=== PATIENT | male | born 1975 | race Hispanic/Latino ===

== ENCOUNTER 2019-09-27 09:12 | Emergency (ER) | payer BC, SELFPAY ==
--- NOTE | ~2019-09-27 | CT_ITS ---
EXAMINATION: CT abdomen pelvis w con DATE: 09/27/2019 10:41 INDICATION: Rectal pain. Blood in stool. TECHNIQUE: Computed tomography (CT) of the abdomen and pelvis was performed with 100 mL Omnipaque 350 intravenous contrast. Automated exposure control and iterative reconstruction technique were employe d. The dose-length product was 1148.05 mGy-cm. COMPARISON: None. FINDINGS: The visualized portions of the lung bases are clear without pneumonia or pleural effusion. The heart size is normal. No pericardial effusion. The liver, gallbladder, spleen, pancreas, adrenal glands, and right kidney are normal. There is an 18 mm cyst in left kidney. There is a left inguinal hernia containing fat. There is diverticulosis of the colon without evidence of diverticulitis. The a ppendix is normal. There are no dilated loops of bowel. The rectum is unremarkable. There are no path ologically enlarged lymph nodes. There is no free intraperitoneal fluid. There is mild fat stranding at the root of the small bowel mesentery. There is moderate lumbar spondylosis. IMPRESSION: 1. Left inguinal hernia containing fat. 2. 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 Reviewed, dictated and finalized at location A.
[2019-09-27 09:19] VITALS: BP 160/90; PULSE 97; RESP 16; TEMP 36.5; O2SAT 98
--- NOTE | 2019-09-27 10:05 | ED.GENADULT ---
HPI - General Adult General Chief complaint: Unspecified Stated complaint: BUSTED HEMROID Time Seen by Provider: 09/27/19 09:23 Source: RN notes reviewed History of Present Illness HPI narrative: Patient presents emergency department from home for hemorrhoid. Patient states that approximately 1 week ago he began to notice swelling and firmness in his rectum. States at that time he called the after-hours line was given a steroid cream for what was thought to be a thrombosed hemorrhoid. Patient states even placing the cream on the region when this morning he awoke and there was blood in his sheets. He states hemorrhoid is decreased in size but is still present. Patient states he does have a history of frequent skin infections and is diabetic and was worried about possible infection he denies any fevers or chills abdominal pain or any other symptoms at this time Related Data Home Medications Medication Instructions Recorded Confirmed bfuattqx-yro-bzyus-vit K-lycop 1 tablet PO DAILY 03/10/19 03/10/19 [Men's Multivitamin] Allergies Allergy/AdvReac Type Severity Reaction Status Date / Time No Known Drug Allergies Allergy Unknown Verified 03/15/19 11:07 Review of Systems Review of Systems: Narrative: Gen.: Denies fevers or chills Respiratory: Denies shortness of breath CV: Denies chest pain GI: Denies abdominal pain nausea, emesis or diarrhea reports hemorrhoid Musculoskeletal: Denies back pain or muscle pain Neuro: Denies headache or weakness Skin: Denies rash Except as documented, all other systems reviewed and negative PMFSH Past Medical History Medical History Bloating symptom Diabetes Diarrhea Hypertension ESTEFANIA (obstructive sleep apnea) Family History Family History (Updated 02/21/19 @ 11:13 by DOCTOR UNKNOWN) Father Family history of diabetes mellitus in first degree relative Diabetes mellitus Sibling Depression Grandparent Family history of malignant neoplasm Social History Social History Smoking status: Never smoker Alcohol intake: current Exam Narrative: Exam Narrative: APPEARANCE: No acute distress, nontoxic, resting in bed EYES: EOMI HEENT: Normocephalic, atraumatic, OMM RESPIRATORY: No respiratory distress ABDOMINAL: Soft, nontender, nondistended, no rebound or guarding Rectum: At the 7 o'clock position there is a firm area of swelling no surrounding erythema no current bleeding or drainage MUSCULOSKELETAl: Moves all extremities. No clubbing, cyanosis or edema. NEURO: Awake and alert. Following commands, speech normal, no focal deficits SKIN:: Warm, dry. No rashes lesions or abrasions PSYCHIATRIC: Normal affect/mood, Course Course Emergency Course: Discussed with patient results of workup and diagnosis. Discussed need for follow-up with primary care, proper use of medication, and reasons to return to the emergency department. Patient understands and agrees to current treatment plan Vital Signs Vital signs: Vital Signs Temperature 97.7 F 09/27/19 09:19 Pulse Rate 97 09/27/19 09:19 Respiratory Rate 16 09/27/19 09:19 Blood Pressure 160/90 H 09/27/19 09:19 Pulse Oximetry 98 09/27/19 09:19 Temperature 97.7 F 09/27/19 09:19 Pulse Rate 97 09/27/19 09:19 Respiratory Rate 16 09/27/19 09:19 Blood Pressure 160/90 H 09/27/19 09:19 Pulse Oximetry 98 09/27/19 09:19 Medical Decision Making [facility] Narrative Medical decision making narrative: Patient with what appeared to be thrombosed hemorrhoid that then opened and began to bleed still some swelling present is a diabetic concern to possible infection with history of cellulitis and MRSA in the past. Did do imaging at this time no signs of abscess at this time do believe is a thrombosed hemorrhoid outpatient continue hydrocortisone cream and follow-up with his PCP as well as given general surgery f
[2019-09-27 10:30] LABS: Basophils Percent Auto 0.3 % (0.2-1.2); Eosinophils Absolute Auto 0.1 K/mm3 (0-0.3); Eosinophils Percent Auto 0.7 % (0-4.4); Hemoglobin 16.3 g/dL (14.0-18.0); Immature Granulocyte Absolute 0.05 K/mm3 (0.00-0.031); Immature Granulocyte Percent A 0.5 % (0-0.5); Lymphocytes Absolute Auto 2.05 K/mm3 (0.9-3.2); Lymphocytes Percent Auto 19.4 % (18.3-44.2); Mean Corpuscular HGB Conc 32.6 g/dl (32-36); Mean Corpuscular Hemoglobin 27.1 pg (26-34); Mean Corpuscular Volume 83.2 fl (80-100); Mean Platelet Volume 9.6 fl (7.4-10.4); Monocytes Absolute Auto 0.7 K/mm3 (0.1-0.6); Monocytes Percent Auto 6.3 % (2.6-8.5); Neutrophils Absolute Auto 7.7 K/mm3 (1.3-6.7); Neutrophils Percent Auto 72.8 % (45.5-73.1); Platelet Count Result 288 k/mm3 (150-375); Red Blood Count 6.01 M/mm3 (4.6-6.20); Red Cell Distribution Width 13.3 % (11.5-14.5); White Blood Count 10.6 K/mm3 (4.5-10.0)
[2019-09-27 10:36] LABS: Estimated CRCL calculation 135 ml/min; Estimated Glomerular Filt Rate > 60
[2019-09-27 10:48] LABS: Blood Urea Nitrogen 13 mg/dL (9-20); Calcium 9.3 mg/dL (8.4-10.2); Carbon Dioxide 33 mmol/L (22-30); Chloride 98 mmol/L (98-107); Estimated CRCL calculation 153 ml/min; Estimated Glomerular Filt Rate > 60; Glucose 153 mg/dL (75-110); Potassium 3.4 mmol/L (3.4-5.0); Sodium 140 mmol/L (137-145)
[2019-09-27 11:36] VITALS: BP 148/60; PULSE 78; RESP 20; O2SAT 100
== END 2019-09-27 11:38 | disposition home or self-care (01) ==
PROVIDERS: Emergency Provider Emergency Medicine; PCP Internal Medicine
DX: K64.9 Unspecified hemorrhoids (principal); E11.9 Type 2 diabetes mellitus without complications; I10 Essential (primary) hypertension; G47.30 Sleep apnea, unspecified
CPT/HCPCS: 36415; 74177; 80048; 85025; 99284; Q9967

== ENCOUNTER 2020-06-27 08:30 | Outpatient (RCR) | payer BC, SELFPAY ==
--- NOTE | 2020-05-23 11:22 | PTOPEVAL ---
PHYSICAL THERAPY EVALUATION Thank you for referring Santino Metzger to [facility].? Santino was evaluated with a dx of right shoulder adhesive capsulitis. The patient is scheduled to be seen for therapy?2 x/week for 4 weeks. Please review, sign, date and return this plan of care MIRELLA. I agree with and certify that the following plan of care is medically necessary. Referring Physician Date Attending Provider: Vishal Villanueva MD *PT Outpatient Evaluation Start: 05/23/20 10:07 Freq: Status: Active Protocol: Document 05/23/20 10:07 [facility] (Rec: 05/23/20 10:48 [facility] [id number]) Assessment Status Evaluation Evaluation Information Problem Diagnosis right shoulder adhesive capsulitis Additional Evaluation Detail Had severe gastritis in 2018 which he slept a lot due to severe fatigue. The patient began having guy. shoulder pain in 2018 especially with sidelying/ sleeping. The left got better but the right got worse. In October of 2019 the patient was golfing and had severe pain at the right shoulder and pain never relieved. The patient can't sleep on his right side and has pain with reaching, positioning and dressing. 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 Diagnostic Tests X-Rays For This Problem Yes: mild OA Prior Level of Function Medications Home Meds (Include: OTC, RX, Vitamins, tylenol 3x a day per MD for Herbals, Dose, Route,and Frequency) shoulder and had an injection Query Text:Home Med Entries Will No at right shoulder when he saw Longer Recall From Past Visits. Home MD Meds Must Be Re-entered With Each Visit. Pain Assessment Timing of Pain Assessment Timing of Pain Assessment Assessment Pain Scale Pain Scale Used Numeric (1 - 10) Self Report Pain Assessment Right Shoulder(s) Reported Pain Level 0 Pain Frequency Chronic Other Pain Description 5/10 with aggravating movements Greatest Pain Intensity 10 Pain Aggravating Factors
--- NOTE | 2020-06-27 09:30 | PTOPEVAL ---
PHYSICAL THERAPY DISCHARGE SUMMARY Thank you for referring Santino Metzger to [facility] The patient has been seen 11 visits for dx of right shoulder adhesive capsulitis. Goals being met and patient to continue on own. Please review, sign, date and return this plan of care MIRELLA. I agree with and certify the following plan of care. Referring Physician Date Attending Provider: Vishal Villanueva MD *PT Outpatient Discharge Start: 05/23/20 10:07 Freq: Status: Active Protocol: Document 06/27/20 08:33 [facility] (Rec: 06/27/20 08:47 [facility] [id number]) Assessment Status Discharge Pain Assessment Timing of Pain Assessment Timing of Pain Assessment Pre-Treatment Pain Scale Pain Scale Used Numeric (1 - 10) Self Report Pain Assessment Right Shoulder(s) Reported Pain Level 1 Pain Frequency Acute Other Pain Description with extreme IR reach Greatest Pain Intensity 4 Pain Score Pain Score 1: Self Report Interventions Used Interventions Used By Clinicians Education,Exercise,Heat, Mobilization,Manual Therapy Techniques Pain Relief Interventions Used By Exercise,Heat Patient Upper Extremity Range of Motion General Upper Extremity Range of Motion Reason Not Measured Pain Gross Upper Extremity Range of Motion right shoulder active motion: Comments extension 74, flexion 156, abduction 169, ER 90, IR 60 degrees. Passive motoions: flexion 170, abduction 180, ER 90, IR 65 degrees. PT Clinical Summary Mr. Metzger is a 45 y/o male that has been seen 11 visits for heat, manual therapy, exercises and patient education for the dx of right shoulder adhesive capsulitis. Patient is compliant and has progressed well with most goals met. IR still has mild restrictions and patient is independent for progressing on own at home. Patient to call if has further PT needs. D/C PT at this time. Patient to see MD next week for follow up.
== END 2020-06-28 10:58 | disposition home or self-care (01) ==
LOC: ANHPT 08:30
PROVIDERS: PCP Internal Medicine; Visit Provider Orthopaedic Surgery
DX: M75.01 Adhesive capsulitis of right shoulder (principal)
CPT/HCPCS: 97110; 97140; 97161

== ENCOUNTER → 2022-11-21 07:36 | Outpatient (CLI) | payer BC, SELFPAY ==
--- NOTE | ~2022-11-21 | XR_ITS ---
EXAMINATION: XR foot RT min 3V DATE: 11/21/2022 08:00 INDICATION: Dropped part of gun on right foot. TECHNIQUE: 4 views of right foot were obtained. COMPARISON: Right calcaneus radiographs 01/31/2012 FINDINGS: Bone alignment is normal. No fracture. There is mild osteoarthritis of some of the interpha langeal joints. There are enthesophytes at the posterior and plantar aspects of calcaneal tuberosity. IMPRESSION: 1. Mild polyarticular osteoarthritis. Reviewed, dictated and finalized at location A.
== END ==
PROVIDERS: PCP Family Medicine; Visit Provider Nurse Practitioner
DX: M79.671 Pain in right foot (principal); M15.9 Polyosteoarthritis, unspecified
CPT/HCPCS: 73630

== ENCOUNTER 2023-09-29 08:09 | Emergency (ER) | payer BC, SELFPAY ==
[2023-09-29] VITALS (8 sets, daily range): BP systolic 105–151; BP diastolic 63–76; PULSE 113–130; RESP 18–24; TEMP 38.5; O2SAT 94–98
--- NOTE | ~2023-09-29 | US_ITS ---
EXAMINATION: US venous doppler [facility] DATE: 09/29/2023 09:08 INDICATION: Left lower limb pain and swelling. TECHNIQUE: Grayscale ultrasound images without and with compression and Doppler ultrasound images of the left lower extremity veins were obtained. COMPARISON: None. FINDINGS: The visualized portions of left common femoral vein, profunda (deep) femoral vein, femoral vein, popl iteal vein, peroneal veins, posterior tibial veins, and greater saphenous vein outflow are patent. IMPRESSION: 1. No deep venous thrombosis. Reviewed, dictated and finalized at location A.
[2023-09-29 08:26] LABS: Glucose Point of Care 147 mg/dl (65-105)
--- NOTE | 2023-09-29 08:30 | ECG_ITS ---
SEE SCANNED COPY FOR CONFIRMED REPORT MTDD
[2023-09-29 08:53] LABS: Basophils Percent Auto 0.2 % (0.2-1.2); Eosinophils Percent Auto 0.1 % (0-4.4); Immature Granulocyte Absolute 0.05 K/mm3 (0.00-0.031); Immature Granulocyte Percent A 0.4 % (0-0.5); Lymphocytes Absolute Auto 0.61 K/mm3 (0.9-3.2); Lymphocytes Percent Auto 4.9 % (18.3-44.2); Mean Corpuscular HGB Conc 32.7 g/dl (32-36); Mean Corpuscular Volume 85.7 fl (80-100); Mean Platelet Volume 9.7 fl (7.4-10.4); Monocytes Absolute Auto 0.1 K/mm3 (0.1-0.6); Monocytes Percent Auto 0.8 % (2.6-8.5); Neutrophils Absolute Auto 11.8 K/mm3 (1.3-6.7); Neutrophils Percent Auto 93.6 % (45.5-73.1); Platelet Count Result 224 k/mm3 (150-375); Red Blood Count 5.72 M/mm3 (4.6-6.20); Red Cell Distribution Width 13.9 % (11.5-14.5); White Blood Count 12.6 K/mm3 (4.5-10.0)
[2023-09-29] MEDS: SODIUM CHLORIDE 0.9% IV 1,000 ML 999 ML IV CONT (08:55)
[2023-09-29 09:02] LABS: Alanine Aminotransferase 33 U/L (6-50); Albumin Level 4.6 g/dL (3.5-5.1); Alkaline Phosphatase 87 U/L (38-126); Anion Gap 11 mmol/L (4-12); Aspartate Amino Transferase 23 U/L (17-59); Bilirubin,Total 1.1 mg/dL (0.2-1.3); Blood Urea Nitrogen 14 mg/dL (9-20); Carbon Dioxide 24 mmol/L (22-30); Chloride 105 mmol/L (98-107); Estimated CRCL calculation 151 ml/min; Estimated Glomerular Filt Rate > 60; Glucose 155 mg/dL (65-110); Potassium 3.4 mmol/L (3.4-5.0); Sodium 140 mmol/L (137-145)
--- NOTE | 2023-09-29 09:55 | ED.EXTPRO ---
HPI - Extremity Problem General Chief complaint: Extremity Problem,Nontraumatic Stated complaint: L leg pain, NKI Time Seen by Provider: 09/29/23 08:46 History of Present Illness HPI Narrative: 48-year-old male present to emergency department for evaluation for swelling of the left lower extremity. Patient does have prior history of cellulitis with the most recent case being approximately 2 years ago when he lived in [place]. Patient states he started having some left lower leg pain yesterday did have a fever, patient present to the emergency department for evaluation today. Related Data Home Medications Medication Instructions Recorded Confirmed omeprazole magnesium 20 mg 20 mg PO DAILY PRN 11/20/22 05/29/23 tablet,delayed release (Prilosec OTC) Allergies Allergy/AdvReac Type Severity Reaction Status Date / Time No Known Allergies Allergy Verified 09/29/23 08:10 Review of Systems Review of Systems: All systems reviewed & are unremarkable except as noted in HPI and below PMFSH Past Medical History Medical History Adhesive capsulitis of right shoulder Bloating symptom BMI 36.0-36.9,adult COVID-19 Diabetes Diarrhea Hemoglobin A1C between 7% and 9% indicating borderline diabetic control 04/06/2020 A1C = 7.2 Hypertension ESTEFANIA (obstructive sleep apnea) Family History Family History Father Family history of diabetes mellitus in first degree relative Diabetes mellitus Sibling Depression Grandparent Family history of malignant neoplasm Social History Social History Smoking status: Never smoker Second hand tobacco smoke exposure: No Alcohol intake: never Substance use: never Substance use type: does not use Lack of Transportation: No Lack of Food: Never True Current Housing: I Have Housing Concerned About Future Housing: No Difficulty Paying Gas/Electric Bills: No Difficulty Paying for Meds: No Currently Unemployed: No Education: Master's Degree or Higher Difficulty w/ Childcare or Family Care: No Living arrangements: with family Occupation/Education: occupation Additional occupation/education comments: [employer] Exam Narrative: APPEARANCE: Well appearing, no pain, no distress, well-nourished. HEAD: normocephalic, atraumatic. EYES: PERRLA/EOMI, conjunctivae clear. NOSE: Normal no drainage EARS:TMS clear with good light reflex. THROAT: Pharynx clear, no exudate. NECK: Supple. No adenopathy, no masses. RESPIRATORY: Airway patent, respirations nonlabored. Clear to auscultation bilaterally, no rales, rhonchi, wheezing. CARDIOVASCULAR: Regular rate and rhythm without murmurs rubs or gallops. ABDOMINAL: Soft, nontender, nondistended, normal bowel sounds MUSCULOSKELETAL: Moves all extremities. Strength/ROM intact, No edema, No calf tenderness. NEURO: Alert. Cranial nerves II through XII intact. Good gait. Good coordination SKIN: Erythema of left lower extremity Course Course Emergency Course: Patient was offered admission but preferred to be started on antibiotics and discharged to home. Vital Signs Vital signs: Vital Signs Pulse Rate 123 H 09/29/23 08:14 Respiratory Rate 20 09/29/23 08:14 Blood Pressure 151/65 H 09/29/23 08:14 Pulse Oximetry 98 09/29/23 08:14 Temperature 101.3 F H 09/29/23 08:17 Pulse Rate 113 H 09/29/23 10:39 Respiratory Rate 20 09/29/23 10:39 Blood Pressure 105/63 09/29/23 10:39 Pulse Oximetry 95 09/29/23 10:39 Oxygen Delivery Room Air 09/29/23 08:17 MDM - Extremity (Nontraumatic) MDM Narrative Medical decision making narrative: 48-year-old male presents emergency department for evaluation for lower extremity erythema. patient had a low-grade fever and does have a leukocytosis of 12.6 with a stable hemoglobin. No acute abnormalities o
[2023-09-29] MEDS: CLINDAMYCIN 600 MG/D5W 50 ML 600 MG/50 ML PIGGYBACK 100 MG IVPB (10:14)
[2023-09-29] MEDS: ACETAMINOPHEN 500 MG TABLET 1000 MG PO (10:15)
== END 2023-09-29 10:42 | disposition home or self-care (01) ==
PROVIDERS: Emergency Provider Emergency Medicine; PCP Nurse Practitioner
DX: L03.116 Cellulitis of left lower limb (principal); E11.9 Type 2 diabetes mellitus without complications; I10 Essential (primary) hypertension; G47.33 Obstructive sleep apnea (adult) (pediatric); Z86.16 Personal history of COVID-19; Z79.84 Long term (current) use of oral hypoglycemic drugs; Z79.899 Other long term (current) drug therapy
CPT/HCPCS: 36415; 80053; 82948; 85025; 93005; 93971; 96361; 96365; 99284; A9270; J7030

== ENCOUNTER 2023-10-02 08:36 | Inpatient (IN) | payer BC, SELFPAY ==
[2023-10-02] VITALS (9 sets, daily range): BP systolic 111–132; BP diastolic 80–94; PULSE 76–95; RESP 16–20; TEMP 35.9–36.8; O2SAT 97–100; BMI 35.9
[2023-10-02 09:20] LABS: Basophils Absolute Auto 0.1 K/mm3 (0.0-0.1); Basophils Percent Auto 0.6 % (0.2-1.2); Eosinophils Absolute Auto 0.1 K/mm3 (0-0.3); Eosinophils Percent Auto 0.6 % (0-4.4); Hematocrit 46.8 % (42.0-52.0); Hemoglobin 15.5 g/dL (14.0-18.0); Immature Granulocyte Absolute 0.08 K/mm3 (0.00-0.031); Immature Granulocyte Percent A 0.8 % (0-0.5); Lymphocytes Absolute Auto 0.97 K/mm3 (0.9-3.2); Lymphocytes Percent Auto 9.2 % (18.3-44.2); Mean Corpuscular HGB Conc 33.1 g/dl (32-36); Mean Corpuscular Hemoglobin 27.7 pg (26-34); Mean Corpuscular Volume 83.6 fl (80-100); Mean Platelet Volume 10.2 fl (7.4-10.4); Monocytes Absolute Auto 0.5 K/mm3 (0.1-0.6); Monocytes Percent Auto 5.1 % (2.6-8.5); Neutrophils Absolute Auto 8.8 K/mm3 (1.3-6.7); Neutrophils Percent Auto 83.7 % (45.5-73.1); Platelet Count Result 234 k/mm3 (150-375); White Blood Count 10.5 K/mm3 (4.5-10.0)
[2023-10-02 09:37] LABS: Alanine Aminotransferase 36 U/L (6-50); Albumin Level 4.1 g/dL (3.5-5.1); Alkaline Phosphatase 85 U/L (38-126); Anion Gap 9 mmol/L (4-12); Aspartate Amino Transferase 31 U/L (17-59); Bilirubin,Total 0.9 mg/dL (0.2-1.3); Blood Urea Nitrogen 13 mg/dL (9-20); Calcium 8.7 mg/dL (8.4-10.2); Carbon Dioxide 24 mmol/L (22-30); Chloride 104 mmol/L (98-107); Estimated CRCL calculation 172 ml/min; Estimated Glomerular Filt Rate > 60; Glucose 179 mg/dL (65-110); Potassium 2.7 mmol/L (3.4-5.0); Sodium 137 mmol/L (137-145)
[2023-10-02 09:41] LABS: INR 1.1; Prothrombin Time 14.6 Seconds (11.1-14.7)
--- NOTE | 2023-10-02 09:45 | ED.GENADULT ---
HPI - General Adult General Chief complaint: Skin/Abscess/Foreign Body Stated complaint: cellulitis Time Seen by Provider: 10/02/23 08:48 Source: patient Mode of arrival: ambulatory Limitations: no limitations History of Present Illness HPI narrative: 48-year-old with a history of hypertension, diabetes, ESTEFANIA here with complaints of pain, swelling, redness to his left lower extremity with started few days ago. Patient was seen in the ER 2 days ago had a venous Doppler study which showed no evidence of DVT, was started on clindamycin. Patient states that he has been taking his medication however the swelling is progressively getting worse. He also complains of low-grade fever. He was seen earlier by his primary doctor and was referred to the ER for admission Onset (ago): day(s) (4) Location: lower extremity (left) Severity: moderate Quality: aching Pain Consistency: constant Associated symptoms: fever/chills Related Data Home Medications Medication Instructions Recorded Confirmed omeprazole magnesium 20 mg 20 mg PO DAILY PRN 11/20/22 05/29/23 tablet,delayed release (Prilosec OTC) metformin 500 mg tablet 500 mg PO DAILY 10/02/23 Allergies Allergy/AdvReac Type Severity Reaction Status Date / Time No Known Allergies Allergy Verified 10/02/23 08:44 Review of Systems Review of Systems: All systems reviewed & are unremarkable except as noted in HPI and below Constitutional: Constitutional: Reports no additional constitutional complaints Eyes: Eyes: Reports no additional eye complaints ENT: Reports system reviewed and no additional complaints, except as documented Cardiovascular: Cardiovascular: Reports no additional cardiovascular complaints Respiratory: Respiratory: Reports no additional respiratory complaints Gastrointestinal: Gastrointestinal: Reports no additional gastrointestinal complaints Musculoskeletal: Musculoskeletal: Reports as per HPI Integumentary/Breasts: Skin/Breast: Reports as per HPI Neurologic: Reports system reviewed and no additional complaints, except as documented Endocrine: Endocrine: Reports no additional endocrine complaints Allergic/Immunologic: Allergic/Immunologic: Reports no additional allergic/immunologic complaints [facility] Past Medical History Medical History Adhesive capsulitis of right shoulder Bloating symptom BMI 36.0-36.9,adult COVID-19 Diabetes Diarrhea Hemoglobin A1C between 7% and 9% indicating borderline diabetic control 04/06/2020 A1C = 7.2 Hypertension ESTEFANIA (obstructive sleep apnea) Family History Family History Father Family history of diabetes mellitus in first degree relative Diabetes mellitus Sibling Depression Grandparent Family history of malignant neoplasm Social History Social History Smoking status: Never smoker Second hand tobacco smoke exposure: No Alcohol intake: never Substance use: never Substance use type: does not use Lack of Transportation: No Lack of Food: Never True Current Housing: I Have Housing Concerned About Future Housing: No Difficulty Paying Gas/Electric Bills: No Difficulty Paying for Meds: No Currently Unemployed: No Education: Master's Degree or Higher Difficulty w/ Childcare or Family Care: No Living arrangements: with family Occupation/Education: occupation Additional occupation/education comments: [employer] Exam Narrative: GENERAL: Well-appearing, well-nourished, and in no acute distress. HEAD: Normocephalic, atraumatic. EYES: PERRLA and EOMI. ENT: Nares clear, no rhinorrhea or epistaxis. Mucous membranes moist. NECK: Supple. CHEST: Clear to auscultation. No respiratory distress. HEART: Regular rate and rhythm. No murmur heard. Normal peripheral pulses. ABDOMEN: Soft, nontender, nondistended, normal active rad
[2023-10-02] MEDS: VANCOMYCIN 1,500 MG/NS 500 ML 1,500 MG/500 ML BAG 250 MG IVPB ×2 (10:14→22:12)
[2023-10-02] MEDS: KCL 40 MEQ/WATER 100 ML 100 ML 25 ML IVPB (10:14)
[2023-10-02] MEDS: SODIUM CHLORIDE 0.9% IV 1,000 ML 30 ML (10:25)
--- NOTE | 2023-10-02 10:40 | PC.NURSE ---
This patient, Santino Metzger, was admitted to [facility] Surg Room 326-01. Patient/family oriented to hospital policies and general routines including ID bracelet, bed and alarms, visiting hours, pain management, procedures, bathroom and other care routines, personal items, smoking policy, room service/diet, and visiting hours. Information on how to activate the Rapid Response Team has been discussed. Patient/Family are encouraged to report perceived risks to care and to ask questions if they do not understand what they are told or what they should do.
[2023-10-02] MEDS: POTASSIUM CHLORIDE INJ 40 MEQ in SODIUM CHLORIDE 0.9% IV 500 ML 130 MEQ IVPB (11:15)
[2023-10-02 11:16] LABS: Glucose Point of Care 131 mg/dl (65-105)
--- NOTE | 2023-10-02 11:40 | PC.NURSE ---
This patient, Santino Metzger, was admitted to [facility] Surg Room 326-01. Patient/family oriented to hospital policies and general routines including ID bracelet, bed and alarms, visiting hours, pain management, procedures, bathroom and other care routines, personal items, smoking policy, room service/diet, and visiting hours. Information on how to activate the Rapid Response Team has been discussed. Patient/Family are encouraged to report perceived risks to care and to ask questions if they do not understand what they are told or what they should do.
--- NOTE | 2023-10-02 12:06 | PC.NURSE ---
This patient, Santino Metzger, was admitted to [facility] Surg Room 326-01. Patient/family oriented to hospital policies and general routines including ID bracelet, bed and alarms, visiting hours, pain management, procedures, bathroom and other care routines, personal items, smoking policy, room service/diet, and visiting hours. Information on how to activate the Rapid Response Team has been discussed. Patient/Family are encouraged to report perceived risks to care and to ask questions if they do not understand what they are told or what they should do.
--- NOTE | 2023-10-02 13:31 | PM.IMHP ---
H&P: HPI History of Present Illness Date/Time: 10/02/23 13:31 Chief Complaint: Patient came back to the ER for evaluation of his worsening left leg infection Narrative: He is a very pleasant 48 years old intelligent white male with diabetes and chronic medical issues who was seen in the ER 3 days ago for cellulitis of his left leg. He was worked up, given oral clindamycin and sent home. He went to see his PCP today who noticed worsening of his left leg infection and asked him to come to the ED for evaluation. Patient was started on IV antibiotics. 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 He also had moderately severe hypokalemia of 2.7 which with aggressive treated in the ED. He is being admitted for IV antibiotics, medical management, tele monitoring until potassium is normal, close monitoring and further workup. Review of Systems Review of Systems: He denies any chest pain, palpitation, fever rigor chills, nausea vomiting, dizziness loss of consciousness. 14 systems were reviewed with pertinent positives and negatives per HPI. Except as documented in the HPI/progress notes, all other systems were reviewed and are negative. All systems reviewed & are unremarkable except as noted in HPI and below PMFSH Past Medical History Medical History Adhesive capsulitis of right shoulder Bloating symptom BMI 36.0-36.9,adult COVID-19 Diabetes Diarrhea Hemoglobin A1C between 7% and 9% indicating borderline diabetic control 04/06/2020 A1C = 7.2 Hypertension ESTEFANIA (obstructive sleep apnea) Family History Family History Father Family history of diabetes mellitus in first degree relative Diabetes mellitus Sibling Depression Grandparent Family history of malignant neoplasm Social History Social History Smoking status: Never smoker Second hand tobacco smoke exposure: No Alcohol intake: never Substance use: never Substance use type: does not use Lack of Transportation: No Lack of Food: Never True Current Housing: I Have Housing Concerned About Future Housing: No Difficulty Paying Gas/Electric Bills: No Difficulty Paying for Meds: No Currently Unemployed: No Education: Master's Degree or Higher Difficulty w/ Childcare or Family Care: No Living arrangements: with family Occupation/Education: occupation Additional occupation/education comments: [employer] Meds Home Medications and Allergies Home Medications Medication Instructions Recorded Confirmed Type omeprazole magnesium 20 mg 20 mg PO DAILY PRN Acid Reflux 11/20/22 10/02/23 History tablet,delayed release (Prilosec OTC) amlodipine 10 mg-valsartan 320 mg See Rx Instructions .Route 05/06/23 10/02/23 Rx tablet .COMPLEX #90 tabs dapagliflozin propanediol 10 mg 10 mg PO DAILY #90 tabs 07/16/23 10/02/23 Rx tablet hydrochlorothiazide 12.5 mg tablet See Rx Instructions .Route 07/16/23 10/02/23 Rx .COMPLEX #90 tabs rosuvastatin 5 mg tablet (Crestor) 5 mg PO DAILY #90 tabs 07/16/23 10/02/23 Rx clindamycin HCl 300 mg capsule 300 mg PO Q6H 7 days #28 caps 09/29/23 10/02/23 Rx metformin 500 mg tablet 500 mg PO DAILY 10/02/23 10/02/23 History sitagliptin phosphate 100 mg 100 mg PO DAILY 10/02/23 10/02/23 History tablet (Januvia) Allergies Allergy/AdvReac Type Severity Reaction Status Date / Time No Known Allergies Allergy Verified 10/02/23 08:44 Vital Signs Vital Signs - 24 hr 10/02/23 08:40 10/02/23 09:59 10/02/23 10:31 Temperature 36.4 C L Pulse Rate 83 82 76 Respiratory Rate 18 20 Blood Pressure 132/94 H 111/81 Pulse Oximetry 98 100 Oxygen Delivery Room Air 10/02/23 13:14 Temperature 35.9 C L Pulse Rate 79 Respiratory Rate 20 Blood Pressur
[2023-10-02] MEDS: KCL 20 MEQ/0.45% NS 1,000 ML 75 ML IV CONT (14:06)
[2023-10-02 16:22] LABS: Glucose Point of Care 105 mg/dl (65-105)
[2023-10-02] MEDS: metFORMIN HCL 500 MG TABLET PO (18:25)
[2023-10-02 21:21] LABS: Glucose Point of Care 120 mg/dl (65-105)
[2023-10-02] MEDS: ACETAMINOPHEN 325 MG TABLET 650 MG PO (22:11)
[2023-10-03] VITALS (9 sets, daily range): BP systolic 127–148; BP diastolic 73–83; PULSE 70–102; RESP 16–20; TEMP 36.5–37.6; O2SAT 98–100
[2023-10-03] MEDS: WATER FOR IRRIGATION, STERILE 1,000 ML BOTTLE 1000 ML (04:27)
[2023-10-03 05:55] LABS: Basophils Absolute Auto 0.1 K/mm3 (0.0-0.1); Basophils Percent Auto 0.5 % (0.2-1.2); Eosinophils Absolute Auto 0.1 K/mm3 (0-0.3); Eosinophils Percent Auto 0.8 % (0-4.4); Hematocrit 45.8 % (42.0-52.0); Hemoglobin 14.6 g/dL (14.0-18.0); Immature Granulocyte Absolute 0.12 K/mm3 (0.00-0.031); Immature Granulocyte Percent A 1.2 % (0-0.5); Lymphocytes Absolute Auto 1.51 K/mm3 (0.9-3.2); Mean Corpuscular HGB Conc 31.9 g/dl (32-36); Mean Corpuscular Hemoglobin 27.3 pg (26-34); Mean Corpuscular Volume 85.8 fl (80-100); Mean Platelet Volume 9.9 fl (7.4-10.4); Monocytes Absolute Auto 0.7 K/mm3 (0.1-0.6); Monocytes Percent Auto 6.9 % (2.6-8.5); Neutrophils Absolute Auto 7.6 K/mm3 (1.3-6.7); Neutrophils Percent Auto 75.6 % (45.5-73.1); Platelet Count Result 245 k/mm3 (150-375); Red Blood Count 5.34 M/mm3 (4.6-6.20); Red Cell Distribution Width 14.2 % (11.5-14.5); White Blood Count 10.1 K/mm3 (4.5-10.0)
[2023-10-03 06:05] LABS: Anion Gap 8 mmol/L (4-12); Blood Urea Nitrogen 12 mg/dL (9-20); Calcium 8.4 mg/dL (8.4-10.2); Carbon Dioxide 27 mmol/L (22-30); Chloride 103 mmol/L (98-107); Estimated CRCL calculation 149 ml/min; Estimated Glomerular Filt Rate > 60; Glucose 108 mg/dL (65-110); Magnesium 1.9 mg/dL (1.6-2.3); Phosphorus 3.9 mg/dL (2.5-4.5); Sodium 138 mmol/L (137-145)
[2023-10-03 08:00] LABS: Glucose Point of Care 106 mg/dl (65-105)
[2023-10-03] MEDS: metFORMIN HCL 500 MG TABLET PO ×2 (08:29→17:07)
[2023-10-03] MEDS: amLODIPine BESYLATE 5 MG TABLET 10 MG PO (08:30)
[2023-10-03] MEDS: ROSUVASTATIN 5 MG TABLET PO (08:30)
[2023-10-03] MEDS: VALSARTAN 160 MG TABLET 320 MG PO (08:30)
[2023-10-03] MEDS: SITagliptin PHOSPHATE 100 MG TABLET PO (08:30)
[2023-10-03] MEDS: EMPAGLIFLOZIN 25 MG TABLET PO (08:30)
[2023-10-03] MEDS: POTASSIUM CHLORIDE 20 MEQ ER TABLET 40 MEQ PO (08:33)
[2023-10-03] MEDS: KCL 40 MEQ/0.45% NS 1,000 ML 100 ML IV CONT ×2 (08:39→22:57)
[2023-10-03] MEDS: VANCOMYCIN 1,500 MG/NS 500 ML 1,500 MG/500 ML BAG 250 MG IVPB (11:30)
[2023-10-03 11:45] LABS: Glucose Point of Care 111 mg/dl (65-105)
--- NOTE | 2023-10-03 15:07 | PM.IMPN ---
Progress Note: A&P Assessment and Plan (1) Cellulitis of left leg: Code(s): L03.116 - Cellulitis of left lower limb Status: Acute (2) Hyperlipidemia: Qualifiers: Hyperlipidemia type: other hyperlipidemia Qualified Code(s): E78.49 - Other hyperlipidemia Code(s): E78.5 - Hyperlipidemia, unspecified Status: Acute (3) Dyslipidemia: Code(s): E78.5 - Hyperlipidemia, unspecified Status: Acute (4) ESTEFANIA (obstructive sleep apnea): Code(s): G47.33 - Obstructive sleep apnea (adult) (pediatric) Status: Acute (5) Chronic right shoulder pain: Code(s): M25.511 - Pain in right shoulder; G89.29 - Other chronic pain Status: Resolved (6) Hypogonadism in male: Code(s): E29.1 - Testicular hypofunction Status: Acute (7) Hx of gastroesophageal reflux (GERD): Code(s): Z87.19 - Personal history of other diseases of the digestive system Status: Acute (8) Hypertension: Qualifiers: Hypertension type: primary hypertension Qualified Code(s): I10 - Essential (primary) hypertension Code(s): I10 - Essential (primary) hypertension Status: Acute (9) Diabetes: Qualifiers: Diabetes mellitus type: type 2 Diabetes mellitus custodial insulin use: without custodial use Diabetes mellitus complication status: without complication Qualified Code(s): E11.9 - Type 2 diabetes mellitus without complications Code(s): E11.9 - Type 2 diabetes mellitus without complications Status: Acute Plan Admit patient to medical unit under full inpatient status Patient has minimally elevated WBC which is slowly downtrending 12.6 -> 10.5 -> 10.1 Patient started on IV vancomycin in the hospital which we will continue on the floor Pharmacy to dose vancomycin based on renal functions Added IV Rocephin 1 g daily Follow-up on blood cultures sent from the ED 10/02/2023: Patient had moderately severe hypokalemia of 2.7 which was addressed with aggressive IV potassium replacement in the ER 10/03/2023: Patient still hypokalemic potassium level at 3. Continue with IV fluids with potassium supplementation as well as 1 dose of oral KCl 40 mEq ordered Add KCl 40 mEq p.o. daily Patient started on telemetry due to hypokalemia, which could be removed once hypokalemia is resolved Continue with gentle IV hydration with potassium replacement Strict input and output monitoring Patient has borderline diabetes mellitus with hemoglobin A1c 8.3% Adjusted patient's diabetic meds and advised patient to monitor his sugars closely to keep his hemoglobin around 7% Increased metformin to 850 mg p.o. q.a.m. and 500 mg p.o. q.p.m. ... Patient may be discharged home on metformin 500 mg p.o. b.i.d. or 850 mg p.o. b.i.d. Continue with Alonzo and Sandy Patient may use his home medication Farxiga inhospital Accu-Cheks qAC and qHS ordered with low-dose insulin coverage as per protocol Continue with CPAP with home settings ? Patient seen and examined at bedside during my morning rounds ? Collaborated with patient's nurse at the bedside in detail and addressed all concerns ? Labs, electrolytes, radiology, investigations and test results reviewed ? Consult/Nursing/Ancilliary notes on the chart reviewed and appreciated ? Spoke with patient/family at the bedside and answered all the questions that they had Repeat labs in a.m. Electrolyte replacement as per protocol. Patient will be monitored very closely on the floor. Further recommendations as per the hospital course. r Time Spent With Patient Time with patient: 15 - 25 minutes Subjective Date/time seen: 10/03/23 15:07 Interval history: H&P: HPI History of Present Illness Date/Time: 10/02/23? 13:31 Chief Complaint: Patient came back to the ER for evaluation of his worsening left leg infection Narrative: He is a very pleasant 48 years old intelligent white male with diabetes and chronic medical issues who was
[2023-10-03 16:50] LABS: Glucose Point of Care 97 mg/dl (65-105)
[2023-10-03 20:48] LABS: Glucose Point of Care 138 mg/dl (65-105)
[2023-10-03 22:47] LABS: Vancomycin Trough 6.6 ug/mL (10.0-20.0)
[2023-10-03] MEDS: VANCOMYCIN 2,000 MG/NS 500 ML 2,000 MG/500 ML BAG 150 MG IVPB (23:21)
[2023-10-04] VITALS (7 sets, daily range): BP systolic 129–134; BP diastolic 73–85; PULSE 77–91; RESP 16; TEMP 36.4–37.1; O2SAT 97–99
[2023-10-04 05:53] LABS: Basophils Percent Auto 0.3 % (0.2-1.2); Eosinophils Absolute Auto 0.1 K/mm3 (0-0.3); Eosinophils Percent Auto 0.4 % (0-4.4); Hematocrit 41.8 % (42.0-52.0); Hemoglobin 13.5 g/dL (14.0-18.0); Immature Granulocyte Absolute 0.19 K/mm3 (0.00-0.031); Immature Granulocyte Percent A 1.5 % (0-0.5); Lymphocytes Absolute Auto 1.65 K/mm3 (0.9-3.2); Lymphocytes Percent Auto 13.1 % (18.3-44.2); Mean Corpuscular HGB Conc 32.3 g/dl (32-36); Mean Corpuscular Hemoglobin 27.4 pg (26-34); Mean Platelet Volume 9.8 fl (7.4-10.4); Monocytes Absolute Auto 0.8 K/mm3 (0.1-0.6); Monocytes Percent Auto 6.4 % (2.6-8.5); Neutrophils Absolute Auto 9.9 K/mm3 (1.3-6.7); Neutrophils Percent Auto 78.3 % (45.5-73.1); Platelet Count Result 247 k/mm3 (150-375); Red Blood Count 4.92 M/mm3 (4.6-6.20); Red Cell Distribution Width 14.1 % (11.5-14.5); White Blood Count 12.6 K/mm3 (4.5-10.0)
[2023-10-04 06:14] LABS: Anion Gap 8 mmol/L (4-12); Blood Urea Nitrogen 10 mg/dL (9-20); Calcium 8.1 mg/dL (8.4-10.2); Carbon Dioxide 22 mmol/L (22-30); Chloride 106 mmol/L (98-107); Estimated CRCL calculation 172 ml/min; Estimated Glomerular Filt Rate > 60; Glucose 106 mg/dL (65-110); Potassium 3.6 mmol/L (3.4-5.0); Sodium 136 mmol/L (137-145)
[2023-10-04 07:12] LABS: Glucose Point of Care 103 mg/dl (65-105)
[2023-10-04] MEDS: amLODIPine BESYLATE 5 MG TABLET 10 MG PO (09:33)
[2023-10-04] MEDS: EMPAGLIFLOZIN 25 MG TABLET PO (09:33)
[2023-10-04] MEDS: SITagliptin PHOSPHATE 100 MG TABLET PO (09:33)
[2023-10-04] MEDS: ROSUVASTATIN 5 MG TABLET PO (09:33)
[2023-10-04] MEDS: POTASSIUM CHLORIDE 20 MEQ ER TABLET 40 MEQ PO (09:33)
[2023-10-04] MEDS: VALSARTAN 160 MG TABLET 320 MG PO (09:33)
--- NOTE | 2023-10-04 11:01 | PM.IMPN ---
Progress Note: A&P Assessment and Plan (1) Cellulitis of left leg: Code(s): L03.116 - Cellulitis of left lower limb Status: Acute Assessment and Plan: Cellulitis of left calf Venous Doppler negative for DVT Continue with ceftriaxone and vancomycin WBC slight elevation from yesterday but overall remaining stable, 12.6 Trend CRP Continue supportive care. Elevate extremity (2) Positive blood culture: Code(s): R78.81 - Bacteremia Status: Acute Assessment and Plan: Preliminary blood cultures with growth of Gram-positive cocci in 1 of 2 cultures May be a contaminant. Will await further identification Continue ceftriaxone and vancomycin at this time. Patient remains afebrile with stable WBC. Appears to be clinically improving on current regimen (3) Diabetes: Qualifiers: Diabetes mellitus type: type 2 Diabetes mellitus watermaster insulin use: without watermaster use Diabetes mellitus complication status: without complication Qualified Code(s): E11.9 - Type 2 diabetes mellitus without complications Code(s): E11.9 - Type 2 diabetes mellitus without complications Status: Acute Assessment and Plan: A1c 8.3 (05/2023) Blood sugars are well controlled during this admission Continue Accu-Cheks, sliding scale insulin, hypoglycemic protocol Continue home metformin and Jardiance Will check updated A1c (4) ESTEFANIA (obstructive sleep apnea): Code(s): G47.33 - Obstructive sleep apnea (adult) (pediatric) Status: Acute Assessment and Plan: Continue CPAP during admission (5) Hypertension: Qualifiers: Hypertension type: primary hypertension Qualified Code(s): I10 - Essential (primary) hypertension Code(s): I10 - Essential (primary) hypertension Status: Acute Assessment and Plan: Blood pressure is remaining stable during admission. Continue home antihypertensives (6) Hypokalemia: Code(s): E87.6 - Hypokalemia Status: Resolved Assessment and Plan: Resolved. Potassium remains stable today at 3.6 following supplementation Okay to discontinue telemetry Continue to monitor daily BMP Subjective Date/time seen: 10/04/23 11:01 Interval history: Assuming care for of year today. He reports overall having some mild improvement. He has been able to ambulate today with less discomfort. He has also noticed that his left leg is less warm to touch today. He feels that the swelling is unchanged. He has noticed some minimal improvement in his redness in the proximal portion of his calf. He reports pain is greatly improved, currently only about 2-3/10. Denies nausea, vomiting, fever, chills. Denies pain in the ankle or foot. Denies shortness breath, cough, chest pain, dizziness, lightheadedness, weakness. Tolerating his diet. Review of Systems Review of Systems: All systems reviewed & are unremarkable except as noted in HPI and below Exam Narrative: General: Well-nourished, well-appearing 48 year-old male, sitting up in bed, comfortable, NARD Neuro: awake, alert and oriented x4, speech clear, no focal neuro deficits noted HEENMT: normocephalic, atraumatic, EOMI, sclerae anicteric Respiratory: clear to auscultation bilaterally, nonlabored breathing Cardio: regular rate, regular rhythm with S1-S2 Abdomen: nondistended, normoactive bowel sounds, soft, nontender to palpation Extremities: Left lower extremity with 2-3+ edema, erythema extending to just below the knee remains within marked borders, no wounds or drainage, minimal warmth to palpation, right lower extremity without edema, DP pulses 2+ bilaterally, able to wiggle toes Skin: no rashes or lesions, warm and dry Psych: appropriate mood and affect, judgment and insight intact Objective Data Vital Signs Vital Signs: Vital Signs - 24 hr 10/03/23 12:00 10/03/23 14:00 10/03/23 16:38 Temperature 97.9 F Pulse Rate 102 H 84
[2023-10-04 11:15] LABS: Glucose Point of Care 133 mg/dl (65-105)
[2023-10-04] MEDS: ENOXAPARIN 40 MG/0.4 ML SYRINGE SUB-Q (13:04)
[2023-10-04] MEDS: VANCOMYCIN 2,000 MG/NS 500 ML 2,000 MG/500 ML BAG 175 MG IVPB (13:29)
[2023-10-04 16:16] LABS: Glucose Point of Care 96 mg/dl (65-105)
[2023-10-04] MEDS: KCL 40 MEQ/0.45% NS 1,000 ML 100 ML IV CONT (18:30)
[2023-10-04 21:03] LABS: Glucose Point of Care 110 mg/dl (65-105)
[2023-10-04] MEDS: VANCOMYCIN 2,000 MG/NS 500 ML 2,000 MG/500 ML BAG 150 MG IVPB (22:57)
[2023-10-05 06:00] VITALS: BP 128/74; PULSE 83; RESP 16; TEMP 36.9; O2SAT 100
[2023-10-05 06:23] LABS: Basophils Absolute Auto 0.1 K/mm3 (0.0-0.1); Basophils Percent Auto 0.5 % (0.2-1.2); Eosinophils Absolute Auto 0.1 K/mm3 (0-0.3); Eosinophils Percent Auto 0.5 % (0-4.4); Hematocrit 41.9 % (42.0-52.0); Hemoglobin 13.2 g/dL (14.0-18.0); Immature Granulocyte Absolute 0.28 K/mm3 (0.00-0.031); Immature Granulocyte Percent A 2.4 % (0-0.5); Lymphocytes Absolute Auto 2.03 K/mm3 (0.9-3.2); Lymphocytes Percent Auto 17.7 % (18.3-44.2); Mean Corpuscular HGB Conc 31.5 g/dl (32-36); Mean Corpuscular Hemoglobin 27.1 pg (26-34); Mean Platelet Volume 9.5 fl (7.4-10.4); Monocytes Absolute Auto 0.7 K/mm3 (0.1-0.6); Neutrophils Absolute Auto 8.4 K/mm3 (1.3-6.7); Neutrophils Percent Auto 72.9 % (45.5-73.1); Platelet Count Result 283 k/mm3 (150-375); Red Blood Count 4.87 M/mm3 (4.6-6.20); Red Cell Distribution Width 14.1 % (11.5-14.5); White Blood Count 11.5 K/mm3 (4.5-10.0)
[2023-10-05 06:33] LABS: Anion Gap 7 mmol/L (4-12); Blood Urea Nitrogen 9 mg/dL (9-20); Calcium 8.3 mg/dL (8.4-10.2); Carbon Dioxide 23 mmol/L (22-30); Chloride 106 mmol/L (98-107); Estimated CRCL calculation 172 ml/min; Estimated Glomerular Filt Rate > 60; Glucose 102 mg/dL (65-110); Potassium 3.8 mmol/L (3.4-5.0); Sodium 136 mmol/L (137-145)
[2023-10-05 07:17] LABS: Hemoglobin A1C 7.2 % (<5.7)
[2023-10-05 07:37] LABS: Glucose Point of Care 104 mg/dl (65-105)
[2023-10-05] MEDS: ROSUVASTATIN 5 MG TABLET PO (08:18)
[2023-10-05] MEDS: amLODIPine BESYLATE 5 MG TABLET 10 MG PO (08:18)
[2023-10-05] MEDS: POTASSIUM CHLORIDE 20 MEQ ER TABLET 40 MEQ PO (08:18)
[2023-10-05] MEDS: EMPAGLIFLOZIN 25 MG TABLET PO (08:18)
[2023-10-05] MEDS: VALSARTAN 160 MG TABLET 320 MG PO (08:18)
[2023-10-05] MEDS: SITagliptin PHOSPHATE 100 MG TABLET PO (08:18)
--- NOTE | 2023-10-05 09:57 | PM.IMPN ---
Progress Note: A&P Assessment and Plan (1) Cellulitis of left leg: Code(s): L03.116 - Cellulitis of left lower limb Status: Acute Assessment and Plan: Cellulitis of left calf Venous Doppler negative for DVT DISCUSSED WITH PHARM ID- will switch to oral ANTIBIOTICS- DOXY, AMOXICILLIN WBC slight elevation from yesterday but overall remaining stable- 11.5 today 6.3 Trend CRP Continue supportive care. Elevate extremity (2) Positive blood culture: Code(s): R78.81 - Bacteremia Status: Acute Assessment and Plan: Preliminary blood cultures with growth of Gram-positive cocci in 1 of 2 cultures May be a contaminant. continue to monitor (3) Diabetes: Qualifiers: Diabetes mellitus complication status: without complication Diabetes mellitus ferry terminal supervisor insulin use: without ferry terminal supervisor use Diabetes mellitus type: type 2 Qualified Code(s): E11.9 - Type 2 diabetes mellitus without complications Code(s): E11.9 - Type 2 diabetes mellitus without complications Status: Acute Assessment and Plan: A1c 8.3 (05/2023) Blood sugars are well controlled during this admission Continue Accu-Cheks, sliding scale insulin, hypoglycemic protocol on home metformin, Jardiance and januvia Will check updated A1c (4) ESTEFANIA (obstructive sleep apnea): Code(s): G47.33 - Obstructive sleep apnea (adult) (pediatric) Status: Acute Assessment and Plan: Continue CPAP during admission (5) Hypertension: Qualifiers: Hypertension type: primary hypertension Qualified Code(s): I10 - Essential (primary) hypertension Code(s): I10 - Essential (primary) hypertension Status: Acute Assessment and Plan: Blood pressure is remaining stable during admission. Continue home antihypertensives (6) Hypokalemia: Code(s): E87.6 - Hypokalemia Status: Resolved Assessment and Plan: Resolved. Potassium remains stable today at 3.6 following supplementation Okay to discontinue telemetry Continue to monitor daily BMP Time Spent With Patient Time with patient: less than 15 minutes Subjective Date/time seen: 10/05/23 09:57 Interval history: Assuming care for of year today. He reports overall having some mild improvement. Laying in bed- reports some discomfort when he gets up and move around but tolerable. He has been able to ambulate today with less discomfort. Left leg is less warm to touch today. The swelling is somewhat improved. Denies nausea, vomiting, fever, chills. Denies pain in the ankle or foot. Denies shortness breath, cough, chest pain, dizziness, lightheadedness, weakness. Tolerating his diet. /3-will stop IV fluids today- oral intake is good. De escalate antibiotics to orals Review of Systems Review of Systems: He denies any chest pain, palpitation, fever rigor chills, nausea vomiting, dizziness loss of consciousness. comfortable in bed. 14 systems were reviewed with pertinent positives and negatives per HPI. All systems reviewed & are unremarkable except as noted in HPI and below Exam Narrative: General: Well-nourished, well-appearing 48 year-old male, sitting up in bed, comfortable, NARD Neuro: awake, alert and oriented x4, speech clear, no focal neuro deficits noted HEENMT: normocephalic, atraumatic, EOMI, sclerae anicteric Respiratory: clear to auscultation bilaterally, nonlabored breathing Cardio: regular rate, regular rhythm with S1-S2 Abdomen: nondistended, normoactive bowel sounds, soft, nontender to palpation Extremities: Left lower extremity with 2-3+ edema, erythema extending to just below the knee remains within marked borders, no wounds or drainage, minimal warmth to palpation, right lower extremity without edema, DP pulses 2+ bilaterally, able to wiggle toes-sensation intact. Skin: no rashes or lesions, warm and dry Psych: appropriate mood and affect, judgment and insight intact
[2023-10-05 11:34] LABS: Glucose Point of Care 123 mg/dl (65-105)
[2023-10-05 11:35] LABS: Vancomycin Trough 8.1 ug/mL (10.0-20.0)
[2023-10-05] MEDS: DOXYCYCLINE HYCLATE 100 MG TABLET PO ×2 (12:35→21:09)
[2023-10-05 14:00] VITALS: BP 134/90; PULSE 99; RESP 18; TEMP 37.2; O2SAT 98
[2023-10-05] MEDS: AMOXICILLIN 500 MG CAPSULE PO ×2 (15:02→21:09)
[2023-10-05 16:19] LABS: Glucose Point of Care 88 mg/dl (65-105)
[2023-10-05 20:00] VITALS: PULSE 99; RESP 18; O2SAT 98
[2023-10-05 22:00] VITALS: BP 135/87; PULSE 93; RESP 14; TEMP 36.3; O2SAT 99
[2023-10-06 06:00] VITALS: BP 149/79; PULSE 91; RESP 14; TEMP 36.2; O2SAT 97
[2023-10-06] MEDS: AMOXICILLIN 500 MG CAPSULE PO (06:07)
[2023-10-06 07:35] LABS: Glucose Point of Care 103 mg/dl (65-105)
[2023-10-06] MEDS: EMPAGLIFLOZIN 25 MG TABLET PO (08:00)
[2023-10-06] MEDS: SITagliptin PHOSPHATE 100 MG TABLET PO (08:00)
[2023-10-06] MEDS: POTASSIUM CHLORIDE 20 MEQ ER TABLET 40 MEQ PO (08:00)
[2023-10-06] MEDS: ROSUVASTATIN 5 MG TABLET PO (08:00)
[2023-10-06] MEDS: VALSARTAN 160 MG TABLET 320 MG PO (08:00)
[2023-10-06] MEDS: amLODIPine BESYLATE 5 MG TABLET 10 MG PO (08:00)
[2023-10-06] MEDS: DOXYCYCLINE HYCLATE 100 MG TABLET PO (08:00)
[2023-10-06 08:13] VITALS: O2SAT 98
--- NOTE | 2023-10-06 10:58 | PM.DS ---
DS: Admitting Diagnosis Discharge Date 10/06/23 Admitting Diagnosis Left lower extremity cellulitis DS: Discharge Diagnosis Discharge Diagnosis (1) Cellulitis of left leg: Code(s): L03.116 - Cellulitis of left lower limb Status: Acute (2) Hypokalemia: Code(s): E87.6 - Hypokalemia Status: Resolved DS: Summary Hospital Course Reason for hospitalization: Left lower extremity cellulitis failing outpatient Hospital Course: Patient is 48-year-old male with past medical history of type 2 diabetes, essential hypertension, hyperlipidemia, GERD presents the ED with complaints of left lower extremity cellulitis. Patient has had cellulitis in the past and this is his 4th episode. He was being managed outpatient with clindamycin however the erythema worsened prompting him to come to the ED for further evaluation. He was treated with IV Rocephin and transition to p.o. doxycycline and amoxicillin after 3 days. His cellulitis is receding to below the left knee. With improvement of his labs and vitals he will be discharged with 6 more days of p.o. antibiotics to complete 10 day antibiotic course (course extended due to the extent of cellulitis). Of note his hemoglobin A1c is 7.2. Patient 1 bottle of blood cultures growing Staph epi likely skin contaminant as patient is clinically improving. At time of discharge patient's labs are stable, vitals stable, patient is stable for discharge home. Patient to follow-up with PCP in 1 week. Patient understands and agrees with plan. Status at Discharge Cognitive/behavioral status at discharge: baseline Time Spent with Patient Time attestation: Total time spent providing and/or coordinating discharge services: 35 minutes Exam Narrative: - GENERAL: Pleasant male in no acute distress. Well-nourished. - EYES: EOMI. Anicteric. - HENT: Moist mucous membranes. - LUNGS: Clear to auscultation bilaterally, no wheezing, rhonchi, or rales. - CARDIOVASCULAR: Regular rate and rhythm. No murmur. No JVD. - ABDOMEN: Soft, non-tender and non-distended. No palpable masses. - EXTREMITIES: No edema. Peripheral pulses 2+. Non-tender. Patient has erythematous area on left lower extremity going to need tibia and close to the ankle there has had pain and erythema. This erythema is receding from the previously marked area above the knee. Slightly warm to touch. Nontender. - NEUROLOGIC: No focal neurological deficits. CN II-XII grossly intact. - PSYCHIATRIC: Awake, Alert and oriented x 3. Appropriate mood and affect. - SKIN: Above - LYMPH: No cervical lymphadenopathy. DS: Data Data Completed and Pending Labs on day of discharge: Labs from last 24 hours 10/06/23 10/05/23 10/05/23 07:25 16:12 11:31 POC Capillary Glucose 103 88 123 H Vancomycin Trough 10/05/23 11:03 POC Capillary Glucose Vancomycin Trough 8.1 L Preliminary micro results at discharge 10/02/23 09:02 Blood Culture - Preliminary Blood Staphylococcus epidermidis 10/02/23 09:02 Blood Culture - Preliminary Blood Imaging Radiologist's impression: Left lower extremity venous Doppler 09/28 IMPRESSION: 1. No deep venous thrombosis. Discharge Plan Discharge Attending physician on discharge: Patricia Marino Discharging Clinician: Patricia Marino Anticipated Discharge Date/Time: 10/06/23 10:52 Patient Disposition: Home, Self-Care Activity: as tolerated Diet: diabetic Discharge Instructions: Please continue antibiotics amoxicillin and doxycycline for the cellulitis for 6 more days to complete 10 days antibiotics. It appears to be blood cultures are likely skin contaminant. Hemoglobin A1c is 7.2, follow-up with PCP for further management of diabetes. Patient Instructions: Antibiotic Form, Cellulitis (GEN) Patient Language: [place]er Stand Alone Forms: General Discharge Information Follow-up/Referrals: Parmjit Riggs, DRIVER SERVICE TECHNICIAN [Primary Care Provider] - 1 Adam
== END 2023-10-06 12:00 | disposition home or self-care (01) | DRG 603 ==
LOC: ANHED 09:50 → ANH3MEDSUR 10:31
PROVIDERS: Physician Assistant; Admitting Provider Family Medicine; Emergency Provider Family Medicine; PCP Nurse Practitioner; Visit Provider Student in an Organized Health Care Education/Training Program
DX: L03.116 Cellulitis of left lower limb (principal); E87.6 Hypokalemia; I10 Essential (primary) hypertension; E11.9 Type 2 diabetes mellitus without complications; E78.5 Hyperlipidemia, unspecified; K21.9 Gastro-esophageal reflux disease without esophagitis; M75.01 Adhesive capsulitis of right shoulder; G47.33 Obstructive sleep apnea (adult) (pediatric)
CPT/HCPCS: 36415; 80048; 80053; 80202; 82948; 83036; 83735; 84100; 85025; 85610; 87040; 87077; 87181; 99285; A9270; J0696; J1650; J3370; J3480; J7030; J7040

== ENCOUNTER 2024-03-24 09:45 | Inpatient (IN) | payer BC, SELFPAY ==
[2024-03-24] VITALS (12 sets, daily range): BP systolic 114–142; BP diastolic 64–75; PULSE 98–140; RESP 16–27; TEMP 37.6–38.2; O2SAT 93–97
--- NOTE | ~2024-03-24 | US_ITS ---
EXAMINATION: US venous doppler [facility] DATE: 03/24/2024 10:43 INDICATION: Left lower limb pain and swelling TECHNIQUE: Grayscale ultrasound images without and with compression and Doppler ultrasound images of the left lower extremity veins were obtained. COMPARISON: None. FINDINGS: The visualized portions of left common femoral vein, profunda (deep) femoral vein, femoral vein, popl iteal vein, peroneal veins, posterior tibial veins, gastrocnemius vein and greater saphenous vein out flow are patent. IMPRESSION: 1. No deep venous thrombosis in the left lower limb. Reviewed, dictated and finalized at location B. H BOX TENDER
--- NOTE | ~2024-03-24 | US_ITS ---
EXAMINATION: US arterial duplex LE DATE: 03/28/2024 18:51 INDICATION: Left lower limb swelling and erythema. TECHNIQUE: Multiple grayscale and Doppler ultrasound images of the bilateral lower limbs were obtaine d. COMPARISON: None FINDINGS: On the right, peak systolic velocity is 66 cm/s in common femoral artery, 43 cm/s in profun da femoral artery, 71 cm/s in proximal superficial femoral artery, 68 cm/s in the mid superficial fem oral artery, 52 cm/s in distal superficial femoral artery, 47 cm/s in popliteal artery, 66 cm/s in po sterior tibial artery, 68 cm/s in dorsalis pedis, and 82 cm/s in anterior tibial artery. On the left, peak systolic velocity is 78 cm/s in common femoral artery, 118 cm/s in profunda femoral artery, 96 cm/s in proximal superficial femoral artery, 80 cm/s in the mid superficial femoral arter y, 82 cm/s in distal superficial femoral artery, 86 cm/s in popliteal artery, 72 cm/s in posterior ti bial artery, and 100 cm/s in anterior tibial artery. There is no visible flow in dorsalis pedis. IMPRESSION: 1. No visible flow in left dorsalis pedis. No other significant arterial occlusive disease in the low er limbs. Reviewed, dictated and finalized at location A. AL SERVICE TECHNICIAN IMPRESSION: 1. No visible flow in left dorsalis pedis. No other significant arterial occlus carlos disease in the lower limbs.
--- NOTE | ~2024-03-24 | XR_ITS ---
EXAMINATION: XR chest 2V DATE: 03/24/2024 11:27 INDICATION: Tachycardia. Lower extremity infection. TECHNIQUE: frontal and lateral views of the chest were obtained. COMPARISON: Chest radiograph dated 09/23/2013 FINDINGS: Streaky atelectasis/scarring at the left costophrenic angle. No other airspace opacities, pulmonary e edwar, pleural effusion or pneumothorax. The cardiomediastinal silhouette is normal. Mild thoracic spo ndylosis. IMPRESSION: 1. Mild streaky atelectasis/scarring at the left costophrenic angle. No other acute cardiopulmonary d isease. Reviewed, dictated and finalized at location B. ER SHAFT IMPRESSION: 1. Mild streaky atelectasis/scarring at the left costophrenic angle. No other a cute cardiopulmonary disease.
--- NOTE | ~2024-03-24 | US_ITS ---
EXAMINATION: US thyroid DATE: 03/24/2024 20:37 INDICATION: Hyperthyroidism. TECHNIQUE: Multiple ultrasound images of the thyroid were obtained. COMPARISON: None. FINDINGS: The right thyroid lobe measures 5.4 x 1.9 x 2.1 cm. The left thyroid lobe measures 4.5 x 2.2 x 2.2 c m. There is normal echotexture and echogenicity throughout the thyroid gland. No discrete nodules id entified. Normal vascular flow is present. IMPRESSION: 1. Normal thyroid. Reviewed, dictated and finalized at location A. RUMENT TECHNICIAN APPRENTICE IMPRESSION: 1. Normal thyroid.
[2024-03-24 10:06] LABS: Glucose Point of Care 133 mg/dl (65-105)
--- NOTE | 2024-03-24 10:12 | ECG_ITS ---
Test Date: 2024-03-24 13:20:47 Measurements Intervals [place] Rate: 106 P: 30 AR: 191 QRS: -43 QRSD: 124 T: 31 QT: 342 QTc: 454 Interpretive Statements SINUS TACHYCARDIA LEFT AXIS DEVIATION INCOMPLETE RIGHT BUNDLE BRANCH BLOCK BASELINE WANDER- AVR, V1-V3 ABNORMAL ECG No previous ECG available for comparison Electronically Signed On 03-24-2024 13:31:07 VISUAL DESIGNER by Sanford Corado D.O.
--- NOTE | 2024-03-24 10:44 | ED_ITS ---
HPI - Extremity Problem General Chief complaint: Skin/Abscess/Foreign Body Stated complaint: cellulitis Time Seen by Provider: 03/24/24 10:02 History of Present Illness HPI Narrative: Patient is a 49-year-old male who presents to the ER with left lower extremity swelling, pain, redness. He reports he has a history of cellulitis (x 4), diabetes, high blood pressure. Patient reports he takes medications to treat all of his chronic medical conditions. He reports this morning he woke up around 7:30 a.m. with chills. Patient reports he started experiencing pain in his left lower extremity thigh after waking up, then he noticed his LLE calf was swollen. Upon examination patient endorses burning in his left lower extremity calf, and continued discomfort in his left thigh. Patient denies chest pain, shortness of breath, fevers. Related Data Home Medications Medication Instructions Recorded Confirmed omeprazole magnesium 20 mg 20 mg PO DAILY PRN Acid Reflux 11/20/22 12/15/23 tablet,delayed release (Prilosec OTC) metformin 500 mg tablet 500 mg PO BID 12/15/23 12/15/23 Allergies Allergy/AdvReac Type Severity Reaction Status Date / Time No Known Allergies Allergy Verified 03/24/24 10:15 Review of Systems Review of Systems: All systems reviewed & are unremarkable except as noted in HPI and below PMFSH Past Medical History Medical History Adhesive capsulitis of right shoulder Bloating symptom BMI 36.0-36.9,adult COVID-19 Diabetes Diarrhea Hemoglobin A1C between 7% and 9% indicating borderline diabetic control 04/06/2020 A1C = 7.2 Hypertension ESTEFANIA (obstructive sleep apnea) Family History Family History Father Family history of diabetes mellitus in first degree relative Diabetes mellitus Sibling Depression Grandparent Family history of malignant neoplasm Social History Social History Smoking status: Never smoker Second hand tobacco smoke exposure: No Alcohol intake: never Substance use: never Substance use type: does not use Do You Feel Safe in your Home?: Yes Lack of Transportation: No Lack of Food: Never True Current Housing: I Have Housing Concerned About Future Housing: Decline to Answer Difficulty Paying Gas/Electric Bills: Decline to Answer Difficulty Paying for Meds: Decline to Answer Currently Unemployed: Decline to Answer Education: Master's Degree or Higher Difficulty w/ Childcare or Family Care: Decline to Answer Living arrangements: with family Occupation/Education: occupation Additional occupation/education comments: [employer] Spiritual care concerns: No Exam Narrative: GENERAL: Well appearing, obese, non-toxic, in no acute distress. HEAD: Normocephalic, atraumatic. NECK: Supple. No adenopathy, no masses. RESPIRATORY: Airway patent, respirations nonlabored. Clear to auscultation bilaterally, no rales, rhonchi, wheezing. CARDIOVASCULAR: Tachycardia without murmurs, rubs, or gallops. Peripheral pulses 2+ and equal bilaterally. ABDOMINAL: Soft, nontender, nondistended, no hepatosplenomegaly. Normoactive BS. MUSCULOSKELETAL: Moves all extremities. Strength/ROM intact without gross deformities. SKIN: Warm, dry, normal color. No rashes. LLE positive for swelling and redness. NEURO: A&O X3. Speech clear. Cranial nerves II-XII grossly intact. Steady gait. No ataxic movements. PSYCHIATRIC: Appropriate mood and affect. Normal interaction. Course Vital Signs Vital signs: Vital Signs Temperature 37.6 C H 03/24/24 10:06 Pulse Rate 140 H 03/24/24 10:06 Respiratory Rate 22 H 03/24/24 10:06 Blood Pressure 130/67 03/24/24 10:06 Pulse Oximetry 95 03/24/24 10:06 Oxygen Delivery Room Air 03/24/24 10:06 Temperature 37.6 C H 03/24/24 10:06 Pulse Rate 100 03/24/24 12:40 Respiratory Rate 22 H 03/24/24 12:40 Blood Pressure 114/69 03/24/24 12:40 Pulse Oximetry 96 03/24/24 12:40 Oxygen Delivery Room Air 03/24/24 10:06 MDM - Extremity (Nontraumatic) MDM Narrative Medical decision making narrative: Patient is a 49-year-old male who presents to the ER with left lower extremity swelling, pain, redness. He reports he has a history of cellulitis (x 4), diabetes, high blood pressure. Patient reports he takes medications to treat all of his chronic medical conditions. He reports this morning he woke up around 7:30 a.m. with chills. Patient reports he started experiencing pain in his left lower extremity thigh after waking up, then he noticed his LLE calf was swollen. Upon examination patient endorses burning in his left lower extremity calf, and continued discomfort in his left thigh. Patient denies chest pain, shortness of breath, fevers. Labs Ordered: CBC, CMP, troponin, PTT, troponin, blood cultures, CRP, lactic acid Imaging Ordered: LLE US with Doppler Diagnosis: LLE cellulitis, sepsis Patient's left lower extremity ultrasound shows no DVT. Patient's lactate and white blood cell count are both elevated. He will be admitted to the hospital for IV antibiotics. Patient verbalizes understanding of plan and is in agreement. Differential Diagnosis Differential diagnosis: Likely cellulitis, lower extremity edema and deep vein thrombosis of lower extremity Lab Data 03/24/24 10:42 03/24/24 10:42 Labs: Lab Results 03/24/24 03/24/24 03/24/24 Range/Units 10:03 10:42 11:56 WBC 17.3 H (4.5-10.0) K/mm3 RBC 5.69 (4.6-6.20) M/mm3 Hgb 15.7 (14.0-18.0) g/dL Hct 48.2 (42.0-52.0) % MCV 84.7 (80-100) fl MCH 27.6 (26-34) pg MCHC 32.6 (32-36) g/dl RDW 13.5 (11.5-14.5) % Plt Count 252 (150-375) k/mm3 MPV 9.7 (7.4-10.4) fl Immature Gran % (Auto) Not Reportable Neut % (Auto) Not Reportable Lymph % (Auto) Not Reportable [place] % (Auto) Not Reportable Eos % (Auto) Not Reportable Baso % (Auto) Not Reportable Lymph # (Auto) Not Reportable [place] # (Auto) Not Reportable Eos # (Auto) Not Reportable Baso # (Auto) Not Reportable Abs Immat Gran (auto) Not Reportable Absolute Neuts (auto) Not Reportable Absolute Nucleated RBC Not Reportable Total Counted 100 Neutrophils % (Manual) 82 H (46-73) % Band Neutrophils % 12 H (0-6) % Lymphocytes % (Manual) 5 L (18-44) % Monocytes % (Manual) 1 L (3-9) % Nucleated RBC % Not Reportable Abs Neuts (Manual) 16.26 H (1.3-6.7) K/mm3 Abs Lymphs (Manual) 0.86 L (1.1-4.5) K/mm3 Abs Monocytes (Manual) 0.17 (0.1-0.90) K/mm3 Platelet Estimate Adequate (Adequate) Schistocytes None seen PT 13.0 (11.1-14.7) Seconds INR 0.9 APTT 23.0 (22.3-36.8) Seconds Sodium 140 (137-145) mmol/L Potassium 3.2 L (3.4-5.0) mmol/L Chloride 104 (98-107) mmol/L Carbon Dioxide 25 (22-30) mmol/L Anion Gap 11 (4-12) mmol/L BUN 17 (9-20) mg/dL Creatinine 0.70 (0.7-1.3) mg/dL Estim Creat Clear Calc 147 ml/min Estimated GFR > 60 (59 - ) Glucose 128 H (65-110) mg/dL POC Capillary Glucose 133 H (65-105) mg/dl Lactic Acid 2.8 H (0.7-2.0) mmol/L Calcium 9.3 (8.4-10.2) mg/dL Total Bilirubin 1.2 (0.2-1.3) mg/dL AST 28 (17-59) U/L ALT 30 (6-50) U/L Alkaline Phosphatase 65 (38-126) U/L Troponin I < 0.012 (0.000-0.034) ng/mL C-Reactive Protein 1.0 (<1.0) mg/dL Total Protein 9.0 H (6.3-8.2) g/dL Albumin 4.6 (3.5-5.1) g/dL Urine Color Yellow (Yellow) Urine Appearance Clear (Clear) Urine pH 5.0 (5.0-9.0) Ur Specific [place] 1.019 (1.001-1.035) Urine Protein Negative (Negative) mg/dL Urine Glucose (UA) 3+ H (Negative) mg/dL Urine Ketones Negative (Negative) mg/dL Ur Blood (Man) Negative (Negative) Urine Nitrate Negative (Negative) Urine Bilirubin Negative (Negative) Urine Urobilinogen 0.2 (<2.0) mg/dL Leukocyte Esterase Rfl Negative (Negative) JANKI/UL Discharge Plan Discharge Clinical Impression: Cellulitis of left leg, Sepsis Patient Disposition: Acute Care Hospital Condition: Stable Prescriptions: No Action metformin 500 mg tablet 500 mg PO BID omeprazole magnesium [Prilosec OTC] 20 mg tablet,delayed release (DR/EC) 20 mg PO DAILY PRN (Reason: Acid Reflux) amlodipine-valsartan 10-320 mg tablet See Rx Instructions .ROUTE .COMPLEX Qty: 90 1RF Dose Instruction: TAKE 1 TABLET DAILY Rx Instructions: TAKE 1 TABLET DAILY rosuvastatin 5 mg tablet 5 mg PO DAILY Qty: 90 1RF Januvia 100 mg tablet 100 mg PO DAILY Qty: 90 1RF hydrochlorothiazide 12.5 mg tablet See Rx Instructions .ROUTE .COMPLEX Qty: 90 1RF Dose Instruction: TAKE 1 TABLET DAILY Rx Instructions: TAKE 1 TABLET DAILY dapagliflozin propanediol [Farxiga] 10 mg tablet 10 mg PO DAILY Qty: 90 1RF Follow-up/Referrals: Parmjit Riggs, DIRECTOR OF PATIENT SAFETY [Primary Care Provider] -
[2024-03-24] MEDS: SODIUM CHLORIDE 0.9% IV 1,000 ML 999 ML IV CONT ×3 (10:47)
[2024-03-24] MEDS: SODIUM CHLORIDE 0.9% IV 600 ML 999 ML IV CONT (10:48)
[2024-03-24] MEDS: ACETAMINOPHEN 500 MG TABLET 1000 MG PO (10:48)
[2024-03-24 10:53] LABS: Hematocrit 48.2 % (42.0-52.0); Hemoglobin 15.7 g/dL (14.0-18.0); Mean Corpuscular HGB Conc 32.6 g/dl (32-36); Mean Corpuscular Hemoglobin 27.6 pg (26-34); Mean Corpuscular Volume 84.7 fl (80-100); Mean Platelet Volume 9.7 fl (7.4-10.4); Platelet Count Result 252 k/mm3 (150-375); Red Blood Count 5.69 M/mm3 (4.6-6.20); Red Cell Distribution Width 13.5 % (11.5-14.5); White Blood Count 17.3 K/mm3 (4.5-10.0)
[2024-03-24 11:04] LABS: Lactic Acid Reflex 2.8 mmol/L (0.7-2.0)
[2024-03-24 11:08] LABS: Alanine Aminotransferase 30 U/L (6-50); Albumin Level 4.6 g/dL (3.5-5.1); Alkaline Phosphatase 65 U/L (38-126); Anion Gap 11 mmol/L (4-12); Aspartate Amino Transferase 28 U/L (17-59); Bilirubin,Total 1.2 mg/dL (0.2-1.3); Blood Urea Nitrogen 17 mg/dL (9-20); Calcium 9.3 mg/dL (8.4-10.2); Carbon Dioxide 25 mmol/L (22-30); Chloride 104 mmol/L (98-107); Estimated CRCL calculation 147 ml/min; Estimated Glomerular Filt Rate > 60; Glucose 128 mg/dL (65-110); Potassium 3.2 mmol/L (3.4-5.0); Sodium 140 mmol/L (137-145)
[2024-03-24 11:09] LABS: INR 0.9
[2024-03-24 11:17] LABS: Troponin I < 0.012 ng/mL (0.000-0.034)
[2024-03-24 11:21] LABS: Band Neutrophils Percent 12 % (0-6); Lymphocytes Absolute Manual 0.86 K/mm3 (1.1-4.5); Lymphocytes Percent Manual 5 % (18-44); Platelet Estimate Adequate (Adequate); Schistocytes None Seen; Total Cells Counted 100
[2024-03-24 11:22] LABS: Monocytes Absolute Manual 0.17 K/mm3 (0.1-0.90); Monocytes Percent Manual 1 % (3-9); Neutrophils Absolute Manual 16.26 K/mm3 (1.3-6.7); Neutrophils Percent Manual 82 % (46-73)
[2024-03-24 12:07] LABS: Add Urine Microscopic? NO; Appearance Urine Clear (Clear); Bilirubin Urine Negative (Negative); Blood Urine Negative (Negative); Color Urine Yellow (Yellow); Glucose Urine UA 3+ mg/dL (Negative); Ketones Urine Negative (Negative); Leukocyte Esterase Ur Negative LEU/UL (Negative); Nitrate Urine Negative (Negative); Protein Urine Negative (Negative); Specific Grav Ur 1.019 (1.001-1.035); Urobilinogen Urine 0.2 mg/dL (<2.0)
[2024-03-24] MEDS: VANCOMYCIN 1,250 MG/NS 250 ML 1,250 MG/250 ML BAG 166.67 MG IVPB ×2 (12:55→15:04)
[2024-03-24 13:49] LABS: Reflex Lactic Acid Yes or No Add Lactic
--- NOTE | 2024-03-24 14:06 | P.HP_ITS ---
H&P: HPI History of Present Illness Date/Time: 03/24/24 14:06 Chief Complaint: cellulitis Narrative: This is a 49-year-old male with a significant past medical history of hypertension, diabetes who presents to the hospital for evaluation of left lower extremity swelling, pain, redness. Patient initially meeting sepsis criteria with heart rate of 140, respiratory rate of 22, white blood cell count of 17.3, lactic acidosis 2.8, known source of infection left lower extremity cellulitis. patient states that his symptoms started this morning when he woke up He noticed that his left lower extremity was red warm and swollen. He states that he has had 5 other incidences where he is been treated for cellulitis in his left leg. Patient denies any recent illness or been around any sick contacts. He states that he does have family members that have had infections in her leg before unsure if this is related. He denies any cuts or insect bites to his lower extremity. His skin does appear to be intact. 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 He denies any history of DVT or PE in the past. Workup in the hospital included a venous Doppler study the left lower extremity which was negative for DVT. Chest x-ray show mild streaky atelectasis/scarring. Initial labs showed a white blood cell count of 17.3, band neutrophils 12, potassium 3.2, blood sugar 128-133, lactic acid 2.8, troponin negative. TSH was low at 0.374. He states that he does not have any history of thyroid disease and note thyroid disease in his family. UA was obtained and showed 3+ urine glucose otherwise negative. Blood cultures were obtained and are pending. EKG showing sinus tachycardia with left axis deviation, incomplete right bundle branch block with a rate of 106, QTC 454. Patient was given 3 L of normal saline, Tylenol, and vancomycin while in the ED. Review of Systems Review of Systems: All systems reviewed & are unremarkable except as noted in HPI and below Constitutional: Constitutional: Reports as per HPI and Reports no additional constitutional complaints Eyes: Eyes: Reports as per HPI and Reports no additional eye complaints ENT: Reports system reviewed and no additional complaints, except as documented and Reports as per HPI Cardiovascular: Cardiovascular: Reports as per HPI and Reports no additional cardiovascular complaints Respiratory: Respiratory: Reports as per HPI and Reports no additional respiratory complaints Gastrointestinal: Gastrointestinal: Reports as per HPI and Reports no additional gastrointestinal complaints Genitourinary: Genitourinary: Reports no additional male genitourinary complaints and Reports as per HPI Musculoskeletal: Musculoskeletal: Reports no additional musculoskeletal complaints and Reports as per HPI Integumentary/Breasts: Skin/Breast: Reports system reviewed and no additional complaints, except as docu and Reports as per HPI Neurologic: Reports system reviewed and no additional complaints, except as documented and Reports as per HPI Psychiatric: Psychiatric: Reports no additional psychiatric complaints and Reports as per HPI [facility] Past Medical History Medical History (Updated 03/24/24 @ 20:30 by Brook Ochoa APRN) Adhesive capsulitis of right shoulder Bloating symptom BMI 36.0-36.9,adult COVID-19 Diabetes Diarrhea Hemoglobin A1C between 7% and 9% indicating borderline diabetic control 04/06/2020 A1C = 7.2 Hypertension Macular degeneration ESTEFANIA (obstructive sleep apnea) Retinal detachment Family History Family History Father Family history of diabetes mellitus in first degree relative Diabetes mellitus Sibling Depression Grandparent Family history of malignant neoplasm Social History Social History Smoking status: Never smoker Second hand tobacco smoke exposure: No Alcohol intake: never Substance use: never Substance use type: does not use Do You Feel Safe in your Home?: Yes Lack of Transportation: No Lack of Food: Never True Current Housing: I Have Housing Concerned About Future Housing: Decline to Answer Difficulty Paying Gas/Electric Bills: Decline to Answer Difficulty Paying for Meds: Decline to Answer Currently Unemployed: Decline to Answer Education: Master's Degree or Higher Difficulty w/ Childcare or Family Care: Decline to Answer Living arrangements: with family Occupation/Education: occupation Additional occupation/education comments: [employer] Spiritual care concerns: No Meds Home Medications and Allergies Home Medications Medication Instructions Recorded Confirmed Type amlodipine 10 mg-valsartan 320 mg See Rx Instructions .Route 10/12/23 03/24/24 Rx tablet .COMPLEX #90 tabs metformin 500 mg tablet 500 mg PO BID 12/15/23 03/24/24 History hydrochlorothiazide 12.5 mg tablet See Rx Instructions .Route 01/11/24 03/24/24 Rx .COMPLEX #90 tabs rosuvastatin 5 mg tablet 5 mg PO DAILY #90 tabs 01/11/24 03/24/24 Rx sitagliptin phosphate 100 mg 100 mg PO DAILY #90 tabs 01/11/24 03/24/24 Rx tablet (Januvia) dapagliflozin propanediol 10 mg 10 mg PO DAILY #90 tabs 01/26/24 03/24/24 Rx tablet (Farxiga) Allergies Allergy/AdvReac Type Severity Reaction Status Date / Time No Known Allergies Allergy Verified 03/24/24 10:15 Vital Signs Vital Signs - 24 hr 03/24/24 10:06 03/24/24 10:31 03/24/24 11:00 Temperature 99.7 F H Pulse Rate 140 H 130 H 123 H Respiratory Rate 22 H 21 H 23 H Blood Pressure 130/67 119/69 118/67 Pulse Oximetry 95 96 97 Oxygen Delivery Room Air 03/24/24 11:30 03/24/24 11:45 03/24/24 12:11 Temperature Pulse Rate 117 H 116 H 115 H Respiratory Rate 18 27 H 23 H Blood Pressure Pulse Oximetry 97 95 Oxygen Delivery 03/24/24 12:40 03/24/24 13:00 Temperature Pulse Rate 100 100 Respiratory Rate 22 H 20 Blood Pressure 114/69 122/75 Pulse Oximetry 96 97 Oxygen Delivery Exam Narrative: General: In no acute distress, well nourished Head: atraumatic, no encephalopathy Eyes: PERRLA, sclera clear ENT: moist mucous membranes, nasal passages clear Neck: supple, no JVD, no adenopathy, trachea midline Cardiac: Normal S1 and S2. No murmur, gallops or friction rubs, peripheral pulses intact. Respiratory: Lungs clear to auscultation, no adventitious lung sounds, currently on room air Gastrointestinal: soft, non-distended, non-tender, normoactive bowel sounds. : voiding without difficulty. Extremities: moves all extremities well, no edema, good ROM, strength 5/5 Skin: left lower extremity swelling, warmth, erythema from the knee down to his ankle Neuro: Alert and oriented x4, cranial nerves intact, no neuro deficits. Psych: normal mood, normal affect, interactive H&P: Results Labs Labs: Short CBC 03/24/24 Range/Units 10:42 WBC 17.3 H (4.5-10.0) K/mm3 Hgb 15.7 (14.0-18.0) g/dL Hct 48.2 (42.0-52.0) % Plt Count 252 (150-375) k/mm3 BMP 03/24/24 10:42 Sodium 140 Potassium 3.2 L Chloride 104 Carbon Dioxide 25 BUN 17 Creatinine 0.70 Glucose 128 H Calcium 9.3 Cardiac Enzymes 03/24/24 Range/Units 10:42 Troponin I < 0.012 (0.000-0.034) ng/mL Liver Function 03/24/24 Range/Units 10:42 Total Bilirubin 1.2 (0.2-1.3) mg/dL AST 28 (17-59) U/L ALT 30 (6-50) U/L Alkaline Phosphatase 65 (38-126) U/L Albumin 4.6 (3.5-5.1) g/dL Urine 03/24/24 Range/Units 11:56 Urine Color Yellow (Yellow) Urine Appearance Clear (Clear) Urine pH 5.0 (5.0-9.0) Ur Specific [place] 1.019 (1.001-1.035) Urine Protein Negative (Negative) mg/dL Urine Glucose (UA) 3+ H (Negative) mg/dL Imaging venous Doppler study: Radiologist's impression: EXAMINATION: US venous doppler LE LT DATE: 03/24/2024 10:43 INDICATION: Left lower limb pain and swelling TECHNIQUE: Grayscale ultrasound images without and with compression and Doppler ultrasound images of the left lower extremity veins were obtained. COMPARISON: None. FINDINGS: The visualized portions of left common femoral vein, profunda (deep) femoral vein, femoral vein, popliteal vein, peroneal veins, posterior tibial veins, gastrocnemius vein and greater saphenous vein outflow are patent. IMPRESSION: 1. No deep venous thrombosis in the left lower limb. Reviewed, dictated and finalized at location B. LAIN RESIDENT Chest x-ray: Radiologist's impression: EXAMINATION: XR chest 2V DATE: 03/24/2024 11:27 INDICATION: Tachycardia. Lower extremity infection. TECHNIQUE: frontal and lateral views of the chest were obtained. COMPARISON: Chest radiograph dated 09/23/2013 FINDINGS: Streaky atelectasis/scarring at the left costophrenic angle. No other airspace opacities, pulmonary edema, pleural effusion or pneumothorax. The cardiomediastinal silhouette is normal. Mild thoracic spondylosis. IMPRESSION: 1. Mild streaky atelectasis/scarring at the left costophrenic angle. No other acute cardiopulmonary disease. Reviewed, dictated and finalized at location B. LAIN RESIDENT Assessment and Plan Assessment and plan (1) Sepsis: Code(s): A41.9 - Sepsis, unspecified organism Status: Acute Assessment and Plan: * Patient initially meeting sepsis criteria with heart rate of 140, respiratory rate of 22, white blood cell count of 17.3, lactic acidosis 2.8 , known source of infection left lower extremity cellulitis. * vancomycin started * patient was given 3 L of normal saline while in the ED, blood cultures were obtained, antibiotics were started with improvement his heart rate and respiratory rate. * He is febrile, low-grade 99.7 * lactic acid 2.8> * band neutrophils are 12 (2) Bandemia: Code(s): D72.825 - Bandemia Status: Acute Assessment and Plan: see above plan of care (3) Cellulitis of left leg: Code(s): L03.116 - Cellulitis of left lower limb Status: Acute Assessment and Plan: * swelling warmth pain to left lower extremity that started this morning * venous Doppler study was negative for DVT * continue vancomycin * considering TSH was low there is concerns for grave disease and pretibial myxedema, we will get further testing (4) Hypokalemia: Code(s): E87.6 - Hypokalemia Status: Acute Assessment and Plan: * potassium 3.2 * 40 mEq of potassium given * continue to trend (5) Hypomagnesemia: Code(s): E83.42 - Hypomagnesemia Status: Acute Assessment and Plan: * magnesium 1.3 * will give 2 g of Mag IV now * continue to trend (6) Type 2 diabetes mellitus: Code(s): E11.9 - Type 2 diabetes mellitus without complications Status: Chronic Assessment and Plan: * Blood sugars ranging 128-133 * Hgb A1C 6.2 on 12/25 * will repeat hemoglobin A1c * Accu checks AC/HS * high-doseSSI ordered * hypoglycemic protocol in place * Diabetic diet ordered * will hold metformin, Farxiga, Januvia (7) Hyperlipidemia: Qualifiers: Hyperlipidemia type: other hyperlipidemia Qualified Code(s): E78.49 - Other hyperlipidemia Code(s): E78.5 - Hyperlipidemia, unspecified Status: Chronic Assessment and Plan: * continue rosuvastatin (8) Hypertension: Qualifiers: Hypertension type: primary hypertension Qualified Code(s): I10 - Essential (primary) hypertension Code(s): I10 - Essential (primary) hypertension Status: Chronic Assessment and Plan: * blood pressure ranging 118/64 to 122/75 * continue amlodipine/valsartan (9) Hx of gastroesophageal reflux (GERD): Code(s): Z87.19 - Personal history of other diseases of the digestive system Status: Chronic Assessment and Plan: * Prilosec on hold * started on Protonix (10) Hyperthyroidism: Code(s): E05.90 - Thyrotoxicosis, unspecified without thyrotoxic crisis or storm Status: Acute Assessment and Plan: * no history of thyroid disorder * TSH today 0.374 * will check free T3 and free T4 * consider pretibial myxedema Quality VTE Prophylaxis VTE prophylaxis: pharmacologic ordered Hospitalist [facility] Advance Care Plan I have confirmed that the patient's Advanced Care Plan is present, code status is documented, or surrogate decision maker is listed in patient medical record.: Yes Medication Reconciliation I have utilized all available resources to obtain, update and review the patients current medications (includes all prescriptions, OTC, herbals, cannabis, and nutritional supplements).: Yes
--- NOTE | 2024-03-24 14:36 | ADMGEN ---
This patient, Santino Metzger, was admitted to Medical Room 343-01. Patient/family oriented to hospital policies and general routines including ID bracelet, bed and alarms, visiting hours, pain management, procedures, bathroom and other care routines, personal items, smoking policy, room service/diet, and visiting hours. Information on how to activate the Rapid Response Team has been discussed. Patient/Family are encouraged to report perceived risks to care and to ask questions if they do not understand what they are told or what they should do.
[2024-03-24] MEDS: POTASSIUM CHLORIDE 20 MEQ ER TABLET 40 MEQ PO (15:06)
[2024-03-24 15:11] LABS: Lactic Acid 1.7 mmol/L (0.7-2.0)
[2024-03-24 15:12] LABS: Magnesium 1.3 mg/dL (1.6-2.3)
[2024-03-24 16:47] LABS: Thyroid Stimulating Hormone 0.374 uIU/mL (0.465-4.680)
[2024-03-24] MEDS: ACETAMINOPHEN 325 MG TABLET 650 MG PO ×2 (16:52→23:07)
[2024-03-24 17:02] LABS: Glucose Point of Care 104 mg/dl (65-105)
[2024-03-24] MEDS: MAGNESIUM SULF 2 GM/WATER 50ML 2 GM/50 ML BAG IVPB (18:55)
[2024-03-24 19:58] LABS: Erythrocyte Sedimentation Rate 2 mm/hr (0-20)
[2024-03-24 21:52] LABS: HAV RESULT Negative (Negative); Hepatitis B Core IgM Result Negative (Negative)
[2024-03-24 22:04] LABS: Hepatitis C Virus Antibody Negative (Negative)
[2024-03-24 22:24] LABS: Hepatitis B Surface Antigen Negative (Negative)
[2024-03-24 22:50] LABS: Glucose Point of Care 115 mg/dl (65-105)
[2024-03-25] VITALS (10 sets, daily range): BP systolic 123–130; BP diastolic 68–78; PULSE 64–105; RESP 18; TEMP 36.3–38.1; O2SAT 93–96
[2024-03-25] MEDS: VANCOMYCIN 1,500 MG/NS 500 ML 1,500 MG/500 ML BAG 250 MG IVPB ×2 (00:40→13:07)
[2024-03-25 06:07] LABS: Hematocrit 41.9 % (42.0-52.0); Hemoglobin 13.8 g/dL (14.0-18.0); Mean Corpuscular HGB Conc 32.9 g/dl (32-36); Mean Corpuscular Volume 85.2 fl (80-100); Platelet Count Result 205 k/mm3 (150-375); Red Blood Count 4.92 M/mm3 (4.6-6.20); Red Cell Distribution Width 14.1 % (11.5-14.5); White Blood Count 18.7 K/mm3 (4.5-10.0)
[2024-03-25 06:24] LABS: Alanine Aminotransferase 26 U/L (6-50); Albumin Level 3.6 g/dL (3.5-5.1); Alkaline Phosphatase 44 U/L (38-126); Anion Gap 9 mmol/L (4-12); Aspartate Amino Transferase 25 U/L (17-59); Bilirubin,Total 1.5 mg/dL (0.2-1.3); Blood Urea Nitrogen 13 mg/dL (9-20); Calcium 8.4 mg/dL (8.4-10.2); Carbon Dioxide 22 mmol/L (22-30); Chloride 106 mmol/L (98-107); Estimated CRCL calculation 147 ml/min; Estimated Glomerular Filt Rate > 60; Glucose 110 mg/dL (65-110); Potassium 2.8 mmol/L (3.4-5.0); Sodium 137 mmol/L (137-145)
[2024-03-25 06:31] LABS: Neutrophils Percent Manual 82 % (46-73); Total Cells Counted 100
[2024-03-25 06:32] LABS: Band Neutrophils Percent 14 % (0-6); Lymphocytes Absolute Manual 0.56 K/mm3 (1.1-4.5); Lymphocytes Percent Manual 3 % (18-44); Monocytes Absolute Manual 0.18 K/mm3 (0.1-0.90); Monocytes Percent Manual 1 % (3-9); Neutrophils Absolute Manual 17.95 K/mm3 (1.3-6.7); Platelet Estimate Adequate (Adequate); Schistocytes None Seen
[2024-03-25 08:03] LABS: Magnesium 1.9 mg/dL (1.6-2.3)
[2024-03-25] MEDS: POTASSIUM CHLORIDE 20 MEQ ER TABLET 40 MEQ PO ×2 (08:41→14:42)
[2024-03-25] MEDS: ENOXAPARIN 40 MG/0.4 ML SYRINGE SUB-Q (08:41)
[2024-03-25] MEDS: POTASSIUM CHLORIDE INJ 40 MEQ in SODIUM CHLORIDE 0.9% IV 500 ML 130 MEQ IVPB (08:42)
[2024-03-25 10:47] LABS: Anion Gap 11 mmol/L (4-12); Blood Urea Nitrogen 14 mg/dL (9-20); Calcium 8.8 mg/dL (8.4-10.2); Carbon Dioxide 22 mmol/L (22-30); Chloride 103 mmol/L (98-107); Estimated CRCL calculation 116 ml/min; Estimated Glomerular Filt Rate > 60; Glucose 103 mg/dL (65-110); Potassium 3.2 mmol/L (3.4-5.0); Sodium 136 mmol/L (137-145)
[2024-03-25 11:37] LABS: Glucose Point of Care 92 mg/dl (65-105)
--- NOTE | 2024-03-25 15:16 | P.PNIM_ITS ---
Progress Note: A&P Assessment and Plan (1) Sepsis: Code(s): A41.9 - Sepsis, unspecified organism Status: Acute Assessment and Plan: * Patient initially meeting sepsis criteria with heart rate of 140, respiratory rate of 22, white blood cell count of 17.3, lactic acidosis 2.8 , known source of infection left lower extremity cellulitis. * vancomycin discontinued and Ancef in linezolid or ordered for better c overage considering his white blood cell count today is 18.7 and he is still febrile. His antibiotic coverage was discussed with Infectious Disease pharmacist * patient was given 3 L of normal saline while in the ED, blood cultures were obtained, antibiotics were started with improvement his heart rate and respiratory rate. * He is febrile, low-grade 99.7 * lactic acid 2.8>1.7 * band neutrophils initially are 12 (2) Bandemia: Code(s): D72.825 - Bandemia Status: Acute Assessment and Plan: see above plan of care (3) Cellulitis of left leg: Code(s): L03.116 - Cellulitis of left lower limb Status: Acute Assessment and Plan: * swelling warmth pain to left lower extremity that started this morning * venous Doppler study was negative for DVT * vancomycin discontinued and patient was started on Ancef and linezolid.. This was discussed with the Infectious Disease pharmacist * considering TSH was low there is concerns for grave disease and pretibial myxedema, we will get further testing (4) Hypokalemia: Code(s): E87.6 - Hypokalemia Status: Acute Assessment and Plan: * potassium 3.2 * 40 mEq of potassium given * continue to trend (5) Hypomagnesemia: Code(s): E83.42 - Hypomagnesemia Status: Acute Assessment and Plan: * magnesium 1.9 * will hold off on any more replacement today * continue to trend (6) Type 2 diabetes mellitus: Code(s): E11.9 - Type 2 diabetes mellitus without complications Status: Chronic Assessment and Plan: * Blood sugars ranging 92-103 * Hgb A1C 6.2 on 12/25 * will repeat hemoglobin A1c * Accu checks AC/HS * high-dose SSI ordered * hypoglycemic protocol in place * Diabetic diet ordered * will hold metformin, Farxiga, Januvia (7) Hyperlipidemia: Qualifiers: Hyperlipidemia type: other hyperlipidemia Qualified Code(s): E78.49 - Other hyperlipidemia Code(s): E78.5 - Hyperlipidemia, unspecified Status: Chronic Assessment and Plan: * continue rosuvastatin (8) Hypertension: Qualifiers: Hypertension type: primary hypertension Qualified Code(s): I10 - Essential (primary) hypertension Code(s): I10 - Essential (primary) hypertension Status: Chronic Assessment and Plan: * blood pressure ranging 118/64 to 122/75 * continue amlodipine/valsartan (9) Hx of gastroesophageal reflux (GERD): Code(s): Z87.19 - Personal history of other diseases of the digestive system Status: Chronic Assessment and Plan: * Prilosec on hold * started on Protonix (10) Hyperthyroidism: Code(s): E05.90 - Thyrotoxicosis, unspecified without thyrotoxic crisis or storm Status: Acute Assessment and Plan: * no history of thyroid disorder * TSH today 0.374 * will check free T3 and free T4 * consider pretibial myxedema considering he has had 5 other times where he has had redness swelling and warmth to his left lower extremity Time Spent With Patient Time with patient: 25 - 35 minutes Subjective Date/time seen: 03/25/24 15:16 Interval history: Interval history: This is a 49-year-old male with a significant past medical history of hypertension, diabetes who presents to the hospital for evaluation of left lower extremity swelling, pain, redness. Patient initially meeting sepsis criteria with heart rate of 140, respiratory rate of 22, white blood cell count of 17.3, lactic acidosis 2.8, known source of infection left lower extremity cellulitis. patient states that his symptoms started this morning when he woke up He noticed that his left lower extremity was red warm and swollen. He states that he has had 5 other incidences where he is been treated for cellulitis in his left leg. Patient denies any recent illness or been around any sick contacts. He states that he does have family members that have had infections in her leg before unsure if this is related. He denies any cuts or insect bites to his lower extremity. His skin does appear to be intact. 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 He denies any history of DVT or PE in the past. Workup in the hospital included a venous Doppler study the left lower extremity which was negative for DVT. Chest x-ray show mild streaky atelectasis/scarring. Initial labs showed a white blood cell count of 17.3, band neutrophils 12, potassium 3.2, blood sugar 128-133, lactic acid 2.8, troponin negative. TSH was low at 0.374. He states that he does not have any history of thyroid disease and note thyroid disease in his family. UA was obtained and showed 3+ urine glucose otherwise negative. Blood cultures were obtained and are pending. EKG showing sinus tachycardia with left axis deviation, incomplete right bundle branch block with a rate of 106, QTC 454. Patient was given 3 L of normal saline, Tylenol, and vancomycin while in the ED. Subjective: patient denies any new complaints today. Labs reviewed. Review of Systems Review of Systems: All systems reviewed & are unremarkable except as noted in HPI and below Constitutional: Constitutional: Reports as per HPI and Reports no additional constitutional complaints Eyes: Eyes: Reports as per HPI and Reports no additional eye complaints ENT: Reports system reviewed and no additional complaints, except as documented and Reports as per HPI Cardiovascular: Cardiovascular: Reports as per HPI and Reports no additional cardiovascular complaints Respiratory: Respiratory: Reports as per HPI and Reports no additional respiratory complaints Gastrointestinal: Gastrointestinal: Reports as per HPI and Reports no additional gastrointestinal complaints Genitourinary: Genitourinary: Reports no additional male genitourinary complaints and Reports as per HPI Musculoskeletal: Musculoskeletal: Reports no additional musculoskeletal complaints and Reports as per HPI Integumentary/Breasts: Skin/Breast: Reports system reviewed and no additional complaints, except as docu and Reports as per HPI Neurologic: Reports system reviewed and no additional complaints, except as documented and Reports as per HPI Psychiatric: Psychiatric: Reports no additional psychiatric complaints and Reports as per HPI Exam Narrative: General: In no acute distress, well nourished Cardiac: Normal S1 and S2. No murmur, gallops or friction rubs, peripheral pulses intact. Respiratory: Lungs clear to auscultation, no adventitious lung sounds, currently on room air Gastrointestinal: soft, non-distended, non-tender, normoactive bowel sounds. Skin: left lower extremity swelling, warmth, erythema from the knee down to his ankle Neuro: Alert and oriented x4 Objective Data Vital Signs Vital Signs: Vital Signs - 24 hr 03/24/24 23:07 03/24/24 23:21 03/24/24 23:29 Temperature 100.8 F H 100.8 F H Pulse Rate 110 H Respiratory Rate 16 Blood Pressure 142/65 H Pulse Oximetry 93 Oxygen Delivery CPAP 03/25/24 00:07 03/24/24 20:00 03/25/24 00:00 Temperature 98.2 F Pulse Rate 98 102 H Respiratory Rate Blood Pressure Pulse Oximetry Oxygen Delivery 03/25/24 04:00 03/25/24 03:30 03/25/24 06:00 Temperature 97.4 F L Pulse Rate 64 105 H Respiratory Rate 18 Blood Pressure 130/70 Pulse Oximetry 96 Oxygen Delivery CPAP 03/25/24 08:41 03/25/24 08:04 03/25/24 12:05 Temperature Pulse Rate 101 H 95 Respiratory Rate Blood Pressure Pulse Oximetry Oxygen Delivery Room Air Intake/Output Intake/Output: Intake & Output 03/22/24 03/23/24 03/24/24 03/25/24 23:59 23:59 23:59 23:59 Intake Total 3990 3440 Output Total 1400 400 Balance 2590 3040 Meds/Results Medications: Active Medications Generic Name Dose Route Start Last Admin Trade Name Freq PRN Reason Stop Dose Admin Acetaminophen 650 mg 03/24/24 14:21 03/24/24 23:07 Acetaminophen 325 Mg Tablet PO 650 mg Q4H PRN Administration Mild Pain (1-3) or Fever Dextrose 12.5 gm 03/24/24 14:21 Dextrose 50% 25 Gm/50 Ml Syringe IV PUSH PRN PRN Hypoglycemia Protocol Enoxaparin Sodium 40 mg 03/25/24 09:00 03/25/24 08:41 Enoxaparin 40 Mg/0.4 Ml Syringe SUB-Q 40 mg DAILY RICHARD Administration Glucagon 1 mg 03/24/24 14:21 Glucagon For Inj 1 Mg Vial IM PRN PRN Hypoglycemia Protocol Glucose 15 gm 03/24/24 14:21 Glucose Oral Gel 15 Gm Of Glucse In 37.5 Gm Tube PO PRN PRN Hypoglycemia Protocol Dextrose 1,000 mls @ 100 mls/hr 03/24/24 14:21 Dextrose 5% 1,000 Ml IVPB PRN PRN Hypoglycemia Protocol Cefazolin Sodium 2 gm in 50 mls @ 100 mls/hr 03/25/24 14:30 Ancef 2 Gm/D5w 50 Ml IVPB Q8HR [facility] Insulin Aspart 4 - 8 units 03/24/24 17:00 03/25/24 11:42 Insulin Aspart (*Bkc) 100 Units/Ml SUB-Q Not Given TIDWM [facility] Protocol Insulin Aspart 2 - 4 units 03/24/24 21:00 03/24/24 23:08 Insulin Aspart (*Bkc) 100 Units/Ml SUB-Q Not Given HS [facility] Protocol Linezolid 600 mg 03/25/24 21:00 Linezolid 600 Mg Tablet PO Q12HR [facility] Ondansetron HCl 4 mg 03/24/24 14:21 Ondansetron Inj 4 Mg/2 Ml Vial IV PUSH Q6H PRN Nausea And Vomiting Radiology Results: ITS Impressions Venous Doppler Study 03/24/24 10:49 IMPRESSION: 1. No deep venous thrombosis in the left lower limb. Chest X-Ray 03/24/24 11:31 IMPRESSION: 1. Mild streaky atelectasis/scarring at the left costophrenic angle. No other acute cardiopulmonary disease. Thyroid Ultrasound 03/24/24 20:48 IMPRESSION: 1. Normal thyroid. Labs Labs: Laboratory Results - last 24 hr 03/24/24 03/24/24 03/24/24 10:41 14:44 16:59 WBC RBC Hgb Hct MCV MCH MCHC RDW Plt Count MPV Immature Gran % (Auto) Neut % (Auto) Lymph % (Auto) [place] % (Auto) Eos % (Auto) Baso % (Auto) Lymph # (Auto) [place] # (Auto) Eos # (Auto) Baso # (Auto) Abs Immat Gran (auto) Absolute Neuts (auto) Absolute Nucleated RBC Total Counted Neutrophils % (Manual) Band Neutrophils % Lymphocytes % (Manual) Monocytes % (Manual) Nucleated RBC % Abs Neuts (Manual) Abs Lymphs (Manual) Abs Monocytes (Manual) Platelet Estimate Schistocytes ESR 2 Sodium Potassium Chloride Carbon Dioxide Anion Gap BUN Creatinine Estim Creat Clear Calc Estimated GFR Glucose POC Capillary Glucose 104 Hemoglobin A1c 6.0 H Calcium Magnesium Total Bilirubin AST ALT Alkaline Phosphatase Total Protein Albumin TSH 0.374 L Free T4 Hepatitis A IgM Ab Hep Bs Antigen Hep B Core IgM Ab Hepatitis C Ab Screen 03/24/24 03/24/24 03/25/24 20:19 22:22 05:25 WBC RBC Hgb Hct MCV MCH MCHC RDW Plt Count MPV Immature Gran % (Auto) Neut % (Auto) Lymph % (Auto) [place] % (Auto) Eos % (Auto) Baso % (Auto) Lymph # (Auto) [place] # (Auto) Eos # (Auto) Baso # (Auto) Abs Immat Gran (auto) Absolute Neuts (auto) Absolute Nucleated RBC Total Counted Neutrophils % (Manual) Band Neutrophils % Lymphocytes % (Manual) Monocytes % (Manual) Nucleated RBC % Abs Neuts (Manual) Abs Lymphs (Manual) Abs Monocytes (Manual) Platelet Estimate Schistocytes ESR Sodium Potassium Chloride Carbon Dioxide Anion Gap BUN Creatinine Estim Creat Clear Calc Estimated GFR Glucose POC Capillary Glucose 115 H Hemoglobin A1c Calcium Magnesium 1.9 Total Bilirubin AST ALT Alkaline Phosphatase Total Protein Albumin TSH Free T4 1.10 Hepatitis A IgM Ab Negative Hep Bs Antigen Negative Hep B Core IgM Ab Negative Hepatitis C Ab Screen Negative 03/25/24 03/25/24 03/25/24 05:31 10:28 11:31 WBC 18.7 H RBC 4.92 Hgb 13.8 L Hct 41.9 L MCV 85.2 MCH 28.0 MCHC 32.9 RDW 14.1 Plt Count 205 MPV 10.0 Immature Gran % (Auto) Not Reportable Neut % (Auto) Not Reportable Lymph % (Auto) Not Reportable [place] % (Auto) Not Reportable Eos % (Auto) Not Reportable Baso % (Auto) Not Reportable Lymph # (Auto) Not Reportable [place] # (Auto) Not Reportable Eos # (Auto) Not Reportable Baso # (Auto) Not Reportable Abs Immat Gran (auto) Not Reportable Absolute Neuts (auto) Not Reportable Absolute Nucleated RBC Not Reportable Total Counted 100 Neutrophils % (Manual) 82 H Band Neutrophils % 14 H Lymphocytes % (Manual) 3 L Monocytes % (Manual) 1 L Nucleated RBC % Not Reportable Abs Neuts (Manual) 17.95 H Abs Lymphs (Manual) 0.56 L Abs Monocytes (Manual) 0.18 Platelet Estimate Adequate Schistocytes None seen ESR Sodium 137 136 L Potassium 2.8 L* 3.2 L Chloride 106 103 Carbon Dioxide 22 22 Anion Gap 9 11 BUN 13 14 Creatinine 0.70 0.90 Estim Creat Clear Calc 147 116 Estimated GFR > 60 > 60 Glucose 110 103 POC Capillary Glucose 92 Hemoglobin A1c Calcium 8.4 8.8 Magnesium Total Bilirubin 1.5 H AST 25 ALT 26 Alkaline Phosphatase 44 Total Protein 7.0 Albumin 3.6 TSH Free T4 Hepatitis A IgM Ab Hep Bs Antigen Hep B Core IgM Ab Hepatitis C Ab Screen Quality VTE Prophylaxis VTE prophylaxis: pharmacologic ordered
[2024-03-25] MEDS: ceFAZolin 2 GM/D5W 50 ML 2 GM/50 ML BAG IVPB ×2 (15:35→23:01)
[2024-03-25 17:05] LABS: Glucose Point of Care 100 mg/dl (65-105)
[2024-03-25] MEDS: ACETAMINOPHEN 325 MG TABLET 650 MG PO (19:58)
[2024-03-25] MEDS: LINEZOLID 600 MG TABLET PO (20:00)
[2024-03-26 01:38] LABS: Glucose Point of Care 113 mg/dl (65-105)
[2024-03-26 05:44] VITALS: BP 134/83; PULSE 92; RESP 18; TEMP 36.8; O2SAT 99
[2024-03-26] MEDS: ceFAZolin 2 GM/D5W 50 ML 2 GM/50 ML BAG IVPB ×3 (05:46→22:38)
[2024-03-26 06:06] LABS: Basophils Percent Auto 0.3 % (0.2-1.2); Eosinophils Percent Auto 0.1 % (0-4.4); Hematocrit 43.5 % (42.0-52.0); Hemoglobin 13.8 g/dL (14.0-18.0); Immature Granulocyte Absolute 0.09 K/mm3 (0.00-0.031); Immature Granulocyte Percent A 0.7 % (0-0.5); Lymphocytes Absolute Auto 0.73 K/mm3 (0.9-3.2); Lymphocytes Percent Auto 5.8 % (18.3-44.2); Mean Corpuscular HGB Conc 31.7 g/dl (32-36); Mean Corpuscular Hemoglobin 27.4 pg (26-34); Mean Corpuscular Volume 86.3 fl (80-100); Mean Platelet Volume 10.2 fl (7.4-10.4); Monocytes Absolute Auto 0.6 K/mm3 (0.1-0.6); Monocytes Percent Auto 4.8 % (2.6-8.5); Neutrophils Absolute Auto 11.1 K/mm3 (1.3-6.7); Neutrophils Percent Auto 88.3 % (45.5-73.1); Platelet Count Result 163 k/mm3 (150-375); Red Blood Count 5.04 M/mm3 (4.6-6.20); Red Cell Distribution Width 14.3 % (11.5-14.5); White Blood Count 12.6 K/mm3 (4.5-10.0)
[2024-03-26 06:21] LABS: Alanine Aminotransferase 43 U/L (6-50); Albumin Level 3.6 g/dL (3.5-5.1); Alkaline Phosphatase 56 U/L (38-126); Anion Gap 7 mmol/L (4-12); Aspartate Amino Transferase 49 U/L (17-59); Bilirubin,Total 1.1 mg/dL (0.2-1.3); Blood Urea Nitrogen 14 mg/dL (9-20); Calcium 8.3 mg/dL (8.4-10.2); Carbon Dioxide 21 mmol/L (22-30); Chloride 105 mmol/L (98-107); Estimated CRCL calculation 169 ml/min; Estimated Glomerular Filt Rate > 60; Glucose 107 mg/dL (65-110); Potassium 3.5 mmol/L (3.4-5.0); Sodium 133 mmol/L (137-145)
--- NOTE | 2024-03-26 08:24 | P.PNIM_ITS ---
Progress Note: A&P Assessment and Plan (1) Sepsis: Code(s): A41.9 - Sepsis, unspecified organism Status: Acute Assessment and Plan: * Patient initially meeting sepsis criteria with heart rate of 140, respiratory rate of 22, white blood cell count of 17.3, lactic acidosis 2.8 , known source of infection left lower extremity cellulitis. * vancomycin discontinued and Ancef in linezolid or ordered for better c overage considering his white blood cell count today is 18.7 and he is still febrile. His antibiotic coverage was discussed with Infectious Disease pharmacist * patient was given 3 L of normal saline while in the ED, blood cultures were obtained, antibiotics were started with improvement his heart rate and respiratory rate. * He is febrile, low-grade 99.7 * lactic acid 2.8>1.7 * band neutrophils initially are 12 (2) Bandemia: Code(s): D72.825 - Bandemia Status: Acute Assessment and Plan: see above plan of care (3) Cellulitis of left leg: Code(s): L03.116 - Cellulitis of left lower limb Status: Acute Assessment and Plan: Improving * swelling warmth pain to left lower extremity that started this morning * venous Doppler study was negative for DVT * vancomycin discontinued and patient was started on Ancef and linezolid.. This was discussed with the Infectious Disease pharmacist * considering TSH was low there is concerns for grave disease and pretibial myxedema, DENIA, T3, mitochondrial pending (4) Hypokalemia: Code(s): E87.6 - Hypokalemia Status: Acute Assessment and Plan: * Improving * 40 mEq of potassium given * continue to trend (5) Hypomagnesemia: Code(s): E83.42 - Hypomagnesemia Status: Acute Assessment and Plan: Improving * will hold off on any more replacement today * continue to trend (6) Type 2 diabetes mellitus: Code(s): E11.9 - Type 2 diabetes mellitus without complications Status: Chronic Assessment and Plan: * Blood sugars ranging 92-103 * Hgb A1C 6.2 on 12/25 * will repeat hemoglobin A1c * Accu checks AC/HS * high-dose SSI ordered * hypoglycemic protocol in place * Diabetic diet ordered * will hold metformin, Farxiga, Januvia (7) Hyperlipidemia: Qualifiers: Hyperlipidemia type: other hyperlipidemia Qualified Code(s): E78.49 - Other hyperlipidemia Code(s): E78.5 - Hyperlipidemia, unspecified Status: Chronic Assessment and Plan: * continue rosuvastatin (8) Hypertension: Qualifiers: Hypertension type: primary hypertension Qualified Code(s): I10 - Essential (primary) hypertension Code(s): I10 - Essential (primary) hypertension Status: Chronic Assessment and Plan: * blood pressure ranging 118/64 to 122/75 Holding amlodipine/valsartan, hydrochlorothiazide (9) Hx of gastroesophageal reflux (GERD): Code(s): Z87.19 - Personal history of other diseases of the digestive system Status: Chronic Assessment and Plan: * Prilosec on hold * started on Protonix (10) Hyperthyroidism: Code(s): E05.90 - Thyrotoxicosis, unspecified without thyrotoxic crisis or storm Status: Acute Assessment and Plan: * no history of thyroid disorder * TSH today 0.374 * will check free T3 and free T4 * consider pretibial myxedema considering he has had 5 other times where he has had redness swelling and warmth to his left lower extremity Time Spent With Patient Time with patient: Greater than 35 minutes Subjective Date/time seen: 03/26/24 08:24 Interval history: Interval history: This is a 49-year-old male with a significant past medical history of hypertension, diabetes who presents to the hospital for evaluation of left lower extremity swelling, pain, redness. Sepsis with left lower extremity cellulitis. Subjective: patient denies any new complaints today. Leukocytosis improving on a.m. labs, hyponatremia increasing sodium 133, blood cultures no growth today Review of Systems Review of Systems: All systems reviewed & are unremarkable except as noted in HPI and below Constitutional: Constitutional: Reports as per HPI and Reports no additional constitutional complaints Eyes: Eyes: Reports as per HPI and Reports no additional eye complaints ENT: Reports system reviewed and no additional complaints, except as documented and Reports as per HPI Cardiovascular: Cardiovascular: Reports as per HPI and Reports no additional cardiovascular complaints Respiratory: Respiratory: Reports as per HPI and Reports no additional respiratory complaints Gastrointestinal: Gastrointestinal: Reports as per HPI and Reports no additional gastrointestinal complaints Genitourinary: Genitourinary: Reports no additional male genitourinary complaints and Reports as per HPI Musculoskeletal: Musculoskeletal: Reports no additional musculoskeletal complaints and Reports as per HPI Integumentary/Breasts: Skin/Breast: Reports system reviewed and no additional complaints, except as docu and Reports as per HPI Neurologic: Reports system reviewed and no additional complaints, except as documented and Reports as per HPI Psychiatric: Psychiatric: Reports no additional psychiatric complaints and Reports as per HPI Exam Narrative: General: In no acute distress, well nourished Cardiac: Normal S1 and S2. No murmur, gallops or friction rubs, peripheral pulses intact. Respiratory: Lungs clear to auscultation, no adventitious lung sounds, currently on room air Gastrointestinal: soft, non-distended, non-tender, normoactive bowel sounds. Skin: left lower extremity swelling, warmth, erythema from the knee down to his ankle, appears to be improving Neuro: Alert and oriented x4 Objective Data Vital Signs Vital Signs: Vital Signs - 24 hr 03/25/24 08:41 03/25/24 12:05 03/25/24 14:00 Temperature 98.3 F Pulse Rate 95 81 Respiratory Rate 18 Blood Pressure 124/78 Pulse Oximetry 96 Oxygen Delivery Room Air 03/25/24 16:04 03/25/24 19:50 03/25/24 20:00 Temperature 100.5 F H Pulse Rate 88 97 97 Respiratory Rate 18 18 Blood Pressure 123/68 Pulse Oximetry 93 93 Oxygen Delivery Room Air 03/26/24 05:44 Temperature 98.3 F Pulse Rate 92 Respiratory Rate 18 Blood Pressure 134/83 Pulse Oximetry 99 Oxygen Delivery Intake/Output Intake/Output: Intake & Output 03/23/24 03/24/24 03/25/24 03/26/24 23:59 23:59 23:59 23:59 Intake Total 3990 4810 Output Total 1400 1000 450 Balance 2590 3810 -450 Meds/Results Medications: Active Medications Generic Name Dose Route Start Last Admin Trade Name Freq PRN Reason Stop Dose Admin Acetaminophen 650 mg 03/24/24 14:21 03/25/24 19:58 Acetaminophen 325 Mg Tablet PO 650 mg Q4H PRN Administration Mild Pain (1-3) or Fever Dextrose 12.5 gm 03/24/24 14:21 Dextrose 50% 25 Gm/50 Ml Syringe IV PUSH PRN PRN Hypoglycemia Protocol Enoxaparin Sodium 40 mg 03/25/24 09:00 03/25/24 08:41 Enoxaparin 40 Mg/0.4 Ml Syringe SUB-Q 40 mg DAILY RICHARD Administration Glucagon 1 mg 03/24/24 14:21 Glucagon For Inj 1 Mg Vial IM PRN PRN Hypoglycemia Protocol Glucose 15 gm 03/24/24 14:21 Glucose Oral Gel 15 Gm Of Glucse In 37.5 Gm Tube PO PRN PRN Hypoglycemia Protocol Dextrose 1,000 mls @ 100 mls/hr 03/24/24 14:21 Dextrose 5% 1,000 Ml IVPB PRN PRN Hypoglycemia Protocol Cefazolin Sodium 2 gm in 50 mls @ 100 mls/hr 03/25/24 14:30 03/26/24 05:46 Ancef 2 Gm/D5w 50 Ml IVPB 100 mls/hr Q8HR [facility] Administration Insulin Aspart 4 - 8 units 03/24/24 17:00 03/25/24 18:35 Insulin Aspart (*Bkc) 100 Units/Ml SUB-Q Not Given TIDWM [facility] Protocol Insulin Aspart 2 - 4 units 03/24/24 21:00 03/25/24 19:57 Insulin Aspart (*Bkc) 100 Units/Ml SUB-Q Not Given HS [facility] Protocol Linezolid 600 mg 03/25/24 21:00 03/25/24 20:00 Linezolid 600 Mg Tablet PO 600 mg Q12HR [facility] Administration Ondansetron HCl 4 mg 03/24/24 14:21 Ondansetron Inj 4 Mg/2 Ml Vial IV PUSH Q6H PRN Nausea And Vomiting Radiology Results: ITS Impressions Venous Doppler Study 03/24/24 10:49 IMPRESSION: 1. No deep venous thrombosis in the left lower limb. Chest X-Ray 03/24/24 11:31 IMPRESSION: 1. Mild streaky atelectasis/scarring at the left costophrenic angle. No other acute cardiopulmonary disease. Thyroid Ultrasound 03/24/24 20:48 IMPRESSION: 1. Normal thyroid. Labs Labs: Laboratory Results - last 24 hr 03/25/24 03/25/24 03/25/24 10:28 11:31 16:59 WBC RBC Hgb Hct MCV MCH MCHC RDW Plt Count MPV Immature Gran % (Auto) Neut % (Auto) Lymph % (Auto) [place] % (Auto) Eos % (Auto) Baso % (Auto) Lymph # (Auto) [place] # (Auto) Eos # (Auto) Baso # (Auto) Abs Immat Gran (auto) Absolute Neuts (auto) Absolute Nucleated RBC Nucleated RBC % Sodium 136 L Potassium 3.2 L Chloride 103 Carbon Dioxide 22 Anion Gap 11 BUN 14 Creatinine 0.90 Estim Creat Clear Calc 116 Estimated GFR > 60 Glucose 103 POC Capillary Glucose 92 100 Calcium 8.8 Total Bilirubin AST ALT Alkaline Phosphatase Total Protein Albumin 03/25/24 03/26/24 19:57 05:28 WBC 12.6 H RBC 5.04 Hgb 13.8 L Hct 43.5 MCV 86.3 MCH 27.4 MCHC 31.7 L RDW 14.3 Plt Count 163 MPV 10.2 Immature Gran % (Auto) 0.7 H Neut % (Auto) 88.3 H Lymph % (Auto) 5.8 L [place] % (Auto) 4.8 Eos % (Auto) 0.1 Baso % (Auto) 0.3 Lymph # (Auto) 0.73 L [place] # (Auto) 0.6 Eos # (Auto) 0.0 Baso # (Auto) 0.0 Abs Immat Gran (auto) 0.09 H Absolute Neuts (auto) 11.1 H Absolute Nucleated RBC 0.000 Nucleated RBC % 0.0 Sodium 133 L Potassium 3.5 Chloride 105 Carbon Dioxide 21 L Anion Gap 7 BUN 14 Creatinine 0.60 L Estim Creat Clear Calc 169 Estimated GFR > 60 Glucose 107 POC Capillary Glucose 113 H Calcium 8.3 L Total Bilirubin 1.1 AST 49 ALT 43 Alkaline Phosphatase 56 Total Protein 7.0 Albumin 3.6 Quality VTE Prophylaxis VTE prophylaxis: pharmacologic ordered Hospitalist MIPS Advance Care Plan I have confirmed that the patient's Advanced Care Plan is present, code status is documented, or surrogate decision maker is listed in patient medical record.: Yes Medication Reconciliation I have utilized all available resources to obtain, update and review the patients current medications (includes all prescriptions, OTC, herbals, cannabis, and nutritional supplements).: Yes
[2024-03-26 08:38] LABS: Glucose Point of Care 106 mg/dl (65-105)
[2024-03-26] MEDS: LINEZOLID 600 MG TABLET PO ×2 (09:40→20:49)
[2024-03-26] MEDS: ENOXAPARIN 40 MG/0.4 ML SYRINGE SUB-Q (09:40)
[2024-03-26 12:09] LABS: Glucose Point of Care 111 mg/dl (65-105)
[2024-03-26] MEDS: POTASSIUM CHLORIDE 20 MEQ PACKET (FOR LIQUID) 40 MEQ PO (12:52)
[2024-03-26] MEDS: ROSUVASTATIN 5 MG TABLET PO (12:52)
[2024-03-26 14:00] VITALS: BP 147/88; PULSE 86; RESP 16; TEMP 36.8; O2SAT 99
[2024-03-26 16:30] VITALS: TEMP 37.4
[2024-03-26] MEDS: ACETAMINOPHEN 325 MG TABLET 650 MG PO (16:36)
[2024-03-26 17:13] LABS: Glucose Point of Care 113 mg/dl (65-105)
[2024-03-26 19:58] VITALS: PULSE 83; O2SAT 97
[2024-03-26 20:11] VITALS: BP 132/86; PULSE 88; RESP 18; TEMP 36.8; O2SAT 96
[2024-03-27 04:20] LABS: Glucose Point of Care 155 mg/dl (65-105)
[2024-03-27 05:43] VITALS: BP 130/84; PULSE 81; RESP 18; TEMP 36.4; O2SAT 99
[2024-03-27] MEDS: ceFAZolin 2 GM/D5W 50 ML 2 GM/50 ML BAG IVPB ×3 (05:43→21:02)
[2024-03-27 06:09] LABS: T3 Free 2.9 pg/mL (2.3-4.2)
[2024-03-27 06:15] LABS: Basophils Percent Auto 0.4 % (0.2-1.2); Eosinophils Percent Auto 0.4 % (0-4.4); Hematocrit 39.7 % (42.0-52.0); Hemoglobin 13.3 g/dL (14.0-18.0); Immature Granulocyte Absolute 0.07 K/mm3 (0.00-0.031); Immature Granulocyte Percent A 0.8 % (0-0.5); Lymphocytes Absolute Auto 0.99 K/mm3 (0.9-3.2); Lymphocytes Percent Auto 11.6 % (18.3-44.2); Mean Corpuscular HGB Conc 33.5 g/dl (32-36); Mean Corpuscular Hemoglobin 28.1 pg (26-34); Mean Corpuscular Volume 83.9 fl (80-100); Mean Platelet Volume 10.1 fl (7.4-10.4); Monocytes Absolute Auto 0.5 K/mm3 (0.1-0.6); Monocytes Percent Auto 6.3 % (2.6-8.5); Neutrophils Absolute Auto 6.9 K/mm3 (1.3-6.7); Neutrophils Percent Auto 80.5 % (45.5-73.1); Platelet Count Result 193 k/mm3 (150-375); Red Blood Count 4.73 M/mm3 (4.6-6.20); Red Cell Distribution Width 13.9 % (11.5-14.5); White Blood Count 8.5 K/mm3 (4.5-10.0)
[2024-03-27 06:17] LABS: Alanine Aminotransferase 63 U/L (6-50); Albumin Level 3.4 g/dL (3.5-5.1); Alkaline Phosphatase 68 U/L (38-126); Anion Gap 7 mmol/L (4-12); Aspartate Amino Transferase 61 U/L (17-59); Bilirubin,Total 0.8 mg/dL (0.2-1.3); Blood Urea Nitrogen 11 mg/dL (9-20); Carbon Dioxide 24 mmol/L (22-30); Chloride 105 mmol/L (98-107); Estimated CRCL calculation 169 ml/min; Estimated Glomerular Filt Rate > 60; Glucose 124 mg/dL (65-110); Potassium 3.3 mmol/L (3.4-5.0); Sodium 136 mmol/L (137-145)
--- NOTE | 2024-03-27 07:58 | P.PNIM_ITS ---
Progress Note: A&P Assessment and Plan (1) Sepsis: Code(s): A41.9 - Sepsis, unspecified organism Status: Acute Assessment and Plan: improving * Patient initially meeting sepsis criteria with heart rate of 140, respiratory rate of 22, white blood cell count of 17.3, lactic acidosis 2.8 , known source of infection left lower extremity cellulitis. * vancomycin discontinued and Ancef in linezolid or ordered for better coverage considering his white blood cell count today is 18.7 and he is still febrile. His antibiotic coverage was discussed with Infectious Disease pharmacist * patient was given 3 L of normal saline while in the ED, blood cultures were obtained, antibiotics were started with improvement his heart rate and respiratory rate. * He is febrile, low-grade 99.7 * lactic acidosis resolved (2) Bandemia: Code(s): D72.825 - Bandemia Status: Acute Assessment and Plan: see above plan of care (3) Cellulitis of left leg: Code(s): L03.116 - Cellulitis of left lower limb Status: Acute Assessment and Plan: Improving * swelling warmth pain to left lower extremity that started this morning * venous Doppler study was negative for DVT * vancomycin discontinued and patient was started on Ancef and linezolid.. This was discussed with the Infectious Disease pharmacist * considering TSH was low there is concerns for grave disease and pretibial myxedema, DENIA, T3, mitochondrial pending (4) Hypokalemia: Code(s): E87.6 - Hypokalemia Status: Acute Assessment and Plan: replete as needed * 40 mEq of potassium given * continue to trend (5) Hypomagnesemia: Code(s): E83.42 - Hypomagnesemia Status: Acute Assessment and Plan: Improving * replete as needed * continue to trend (6) Type 2 diabetes mellitus: Code(s): E11.9 - Type 2 diabetes mellitus without complications Status: Chronic Assessment and Plan: control * Blood sugars ranging 92-103 * Hgb A1C 6.2 on 12/25 * will repeat hemoglobin A1c * Accu checks AC/HS * high-dose SSI ordered * hypoglycemic protocol in place * Diabetic diet ordered * will hold metformin, Farxiga, Januvia (7) Hyperlipidemia: Qualifiers: Hyperlipidemia type: other hyperlipidemia Qualified Code(s): E78.49 - Other hyperlipidemia Code(s): E78.5 - Hyperlipidemia, unspecified Status: Chronic Assessment and Plan: * continue rosuvastatin (8) Hypertension: Qualifiers: Hypertension type: primary hypertension Qualified Code(s): I10 - Essential (primary) hypertension Code(s): I10 - Essential (primary) hypertension Status: Chronic Assessment and Plan: * blood pressure ranging 118/64 to 122/75 Holding amlodipine/valsartan, hydrochlorothiazide (9) Hx of gastroesophageal reflux (GERD): Code(s): Z87.19 - Personal history of other diseases of the digestive system Status: Chronic Assessment and Plan: * Prilosec on hold * started on Protonix (10) Hyperthyroidism: Code(s): E05.90 - Thyrotoxicosis, unspecified without thyrotoxic crisis or storm Status: Acute Assessment and Plan: * no history of thyroid disorder * TSH today 0.374 * will check free T3 and free T4 * consider pretibial myxedema considering he has had 5 other times where he has had redness swelling and warmth to his left lower extremity Time Spent With Patient Time with patient: Greater than 35 minutes Subjective Date/time seen: 03/27/24 07:58 Interval history: Interval history: This is a 49-year-old male with a significant past medical history of hypertension, diabetes who presents to the hospital for evaluation of left lower extremity swelling, pain, redness. Sepsis with left lower extremity cellulitis. Patient states this his 5th episode with cellulitis. Subjective: patient denies any new complaints today. Leukocytosis resolved on a.m. labs, hyponatremia improving with diet, blood cultures no growth today. Patient has hypokalemia on a.m. labs, replacements ordered, magnesium labs ordered for tomorrow. Cellulitis seems to be improving. Patient frustrated and wants to know why he keeps getting reoccurring cellulitis when he has his diabetes under control and has no chronic wounds. Review of Systems Review of Systems: All systems reviewed & are unremarkable except as noted in HPI and below Constitutional: Constitutional: Reports as per HPI and Reports no additional constitutional complaints Eyes: Eyes: Reports as per HPI and Reports no additional eye complaints ENT: Reports system reviewed and no additional complaints, except as documented and Reports as per HPI Cardiovascular: Cardiovascular: Reports as per HPI and Reports no additional cardiovascular complaints Respiratory: Respiratory: Reports as per HPI and Reports no additional respiratory complaints Gastrointestinal: Gastrointestinal: Reports as per HPI and Reports no additional gastrointestinal complaints Genitourinary: Genitourinary: Reports no additional male genitourinary complaints and Reports as per HPI Musculoskeletal: Musculoskeletal: Reports no additional musculoskeletal complaints and Reports as per HPI Integumentary/Breasts: Skin/Breast: Reports system reviewed and no additional complaints, except as docu and Reports as per HPI Neurologic: Reports system reviewed and no additional complaints, except as documented and Reports as per HPI Psychiatric: Psychiatric: Reports no additional psychiatric complaints and Reports as per HPI Exam Narrative: General: In no acute distress, well nourished Cardiac: Normal S1 and S2. No murmur, gallops or friction rubs, peripheral pulses intact. Respiratory: Lungs clear to auscultation, no adventitious lung sounds, currently on room air Gastrointestinal: soft, non-distended, non-tender, normoactive bowel sounds. Skin: left lower extremity swelling, warmth, erythema from the knee down to his ankle, appears to be improving Neuro: Alert and oriented x4 Objective Data Vital Signs Vital Signs: Vital Signs - 24 hr 03/26/24 14:00 03/26/24 16:30 03/26/24 09:40 Temperature 98.3 F 99.3 F Pulse Rate 86 Respiratory Rate 16 Blood Pressure 147/88 H Pulse Oximetry 99 Oxygen Delivery Room Air 03/26/24 20:11 03/26/24 19:58 03/27/24 05:43 Temperature 98.3 F 97.6 F Pulse Rate 88 83 81 Respiratory Rate 18 18 Blood Pressure 132/86 130/84 Pulse Oximetry 96 97 99 Oxygen Delivery Intake/Output Intake/Output: Intake & Output 03/24/24 03/25/24 03/26/24 03/27/24 23:59 23:59 23:59 23:59 Intake Total 3990 4810 1710 400 Output Total 1400 1000 450 600 Balance 2590 3810 1260 -200 Meds/Results Medications: Active Medications Generic Name Dose Route Start Last Admin Trade Name Freq PRN Reason Stop Dose Admin Acetaminophen 650 mg 03/24/24 14:21 03/26/24 16:36 Acetaminophen 325 Mg Tablet PO 650 mg Q4H PRN Administration Mild Pain (1-3) or Fever Dextrose 12.5 gm 03/24/24 14:21 Dextrose 50% 25 Gm/50 Ml Syringe IV PUSH PRN PRN Hypoglycemia Protocol Enoxaparin Sodium 40 mg 03/25/24 09:00 03/26/24 09:40 Enoxaparin 40 Mg/0.4 Ml Syringe SUB-Q 40 mg DAILY RICHARD Administration Glucagon 1 mg 03/24/24 14:21 Glucagon For Inj 1 Mg Vial IM PRN PRN Hypoglycemia Protocol Glucose 15 gm 03/24/24 14:21 Glucose Oral Gel 15 Gm Of Glucse In 37.5 Gm Tube PO PRN PRN Hypoglycemia Protocol Dextrose 1,000 mls @ 100 mls/hr 03/24/24 14:21 Dextrose 5% 1,000 Ml IVPB PRN PRN Hypoglycemia Protocol Cefazolin Sodium 2 gm in 50 mls @ 100 mls/hr 03/25/24 14:30 03/27/24 06:13 Ancef 2 Gm/D5w 50 Ml IVPB Infused Q8HR RICHARD Infusion Insulin Aspart 4 - 8 units 03/24/24 17:00 03/26/24 17:23 Insulin Aspart (*Bkc) 100 Units/Ml SUB-Q Not Given TIDWM RICHARD Protocol Insulin Aspart 2 - 4 units 03/24/24 21:00 03/26/24 20:48 Insulin Aspart (*Bkc) 100 Units/Ml SUB-Q Not Given HS RICHARD Protocol Linezolid 600 mg 03/25/24 21:00 03/26/24 20:49 Linezolid 600 Mg Tablet PO 600 mg Q12HR RICHARD Administration Ondansetron HCl 4 mg 03/24/24 14:21 Ondansetron Inj 4 Mg/2 Ml Vial IV PUSH Q6H PRN Nausea And Vomiting Rosuvastatin Calcium 5 mg 03/26/24 11:40 03/26/24 12:52 Rosuvastatin 5 Mg Tablet PO 5 mg DAILY RICHARD Administration Radiology Results: ITS Impressions Venous Doppler Study 03/24/24 10:49 IMPRESSION: 1. No deep venous thrombosis in the left lower limb. Chest X-Ray 03/24/24 11:31 IMPRESSION: 1. Mild streaky atelectasis/scarring at the left costophrenic angle. No other acute cardiopulmonary disease. Thyroid Ultrasound 03/24/24 20:48 IMPRESSION: 1. Normal thyroid. Labs Labs: Laboratory Results - last 24 hr 03/24/24 03/26/24 03/26/24 20:19 08:35 12:07 WBC RBC Hgb Hct MCV MCH MCHC RDW Plt Count MPV Immature Gran % (Auto) Neut % (Auto) Lymph % (Auto) [place] % (Auto) Eos % (Auto) Baso % (Auto) Lymph # (Auto) [place] # (Auto) Eos # (Auto) Baso # (Auto) Abs Immat Gran (auto) Absolute Neuts (auto) Absolute Nucleated RBC Nucleated RBC % Sodium Potassium Chloride Carbon Dioxide Anion Gap BUN Creatinine Estim Creat Clear Calc Estimated GFR Glucose POC Capillary Glucose 106 H 111 H Calcium Total Bilirubin AST ALT Alkaline Phosphatase Total Protein Albumin Free T3 pg/mL 2.9 03/26/24 03/26/24 03/27/24 17:10 20:13 05:32 WBC 8.5 RBC 4.73 Hgb 13.3 L Hct 39.7 L MCV 83.9 MCH 28.1 MCHC 33.5 RDW 13.9 Plt Count 193 MPV 10.1 Immature Gran % (Auto) 0.8 H Neut % (Auto) 80.5 H Lymph % (Auto) 11.6 L [place] % (Auto) 6.3 Eos % (Auto) 0.4 Baso % (Auto) 0.4 Lymph # (Auto) 0.99 [place] # (Auto) 0.5 Eos # (Auto) 0.0 Baso # (Auto) 0.0 Abs Immat Gran (auto) 0.07 H Absolute Neuts (auto) 6.9 H Absolute Nucleated RBC 0.000 Nucleated RBC % 0.0 Sodium 136 L Potassium 3.3 L Chloride 105 Carbon Dioxide 24 Anion Gap 7 BUN 11 Creatinine 0.60 L Estim Creat Clear Calc 169 Estimated GFR > 60 Glucose 124 H POC Capillary Glucose 113 H 155 H Calcium 8.0 L Total Bilirubin 0.8 AST 61 H ALT 63 H Alkaline Phosphatase 68 Total Protein 7.0 Albumin 3.4 L Free T3 pg/mL Quality VTE Prophylaxis VTE prophylaxis: pharmacologic ordered
[2024-03-27 08:09] LABS: Glucose Point of Care 129 mg/dl (65-105)
[2024-03-27] MEDS: POTASSIUM CHLORIDE INJ 40 MEQ in SODIUM CHLORIDE 0.9% IV 500 ML 130 MEQ IVPB (09:48)
[2024-03-27] MEDS: LINEZOLID 600 MG TABLET PO ×2 (09:52→21:02)
[2024-03-27] MEDS: ROSUVASTATIN 5 MG TABLET PO (09:52)
[2024-03-27] MEDS: ENOXAPARIN 40 MG/0.4 ML SYRINGE SUB-Q (09:52)
[2024-03-27 11:48] LABS: Glucose Point of Care 133 mg/dl (65-105)
[2024-03-27 13:58] VITALS: BP 136/94; PULSE 78; RESP 16; TEMP 36.6; O2SAT 99
[2024-03-27 16:35] LABS: Glucose Point of Care 130 mg/dl (65-105)
[2024-03-27 20:36] LABS: Glucose Point of Care 175 mg/dl (65-105)
[2024-03-27 20:58] VITALS: BP 134/90; PULSE 84; RESP 18; TEMP 36.8; O2SAT 98
[2024-03-28] MEDS: ceFAZolin 2 GM/D5W 50 ML 2 GM/50 ML BAG IVPB ×2 (05:27→15:07)
[2024-03-28 06:00] VITALS: BP 135/91; PULSE 70; RESP 18; TEMP 36.8; O2SAT 99
[2024-03-28 06:11] LABS: Basophils Percent Auto 0.5 % (0.2-1.2); Eosinophils Absolute Auto 0.1 K/mm3 (0-0.3); Eosinophils Percent Auto 0.7 % (0-4.4); Hematocrit 41.4 % (42.0-52.0); Hemoglobin 13.4 g/dL (14.0-18.0); Immature Granulocyte Absolute 0.07 K/mm3 (0.00-0.031); Immature Granulocyte Percent A 0.9 % (0-0.5); Lymphocytes Absolute Auto 1.47 K/mm3 (0.9-3.2); Lymphocytes Percent Auto 19.8 % (18.3-44.2); Mean Corpuscular HGB Conc 32.4 g/dl (32-36); Mean Corpuscular Hemoglobin 27.5 pg (26-34); Mean Corpuscular Volume 84.8 fl (80-100); Mean Platelet Volume 9.9 fl (7.4-10.4); Monocytes Absolute Auto 0.6 K/mm3 (0.1-0.6); Monocytes Percent Auto 7.7 % (2.6-8.5); Neutrophils Absolute Auto 5.2 K/mm3 (1.3-6.7); Neutrophils Percent Auto 70.4 % (45.5-73.1); Platelet Count Result 243 k/mm3 (150-375); Red Blood Count 4.88 M/mm3 (4.6-6.20); Red Cell Distribution Width 13.9 % (11.5-14.5); White Blood Count 7.4 K/mm3 (4.5-10.0)
[2024-03-28 06:38] LABS: Alanine Aminotransferase 56 U/L (6-50); Albumin Level 3.5 g/dL (3.5-5.1); Alkaline Phosphatase 66 U/L (38-126); Anion Gap 7 mmol/L (4-12); Aspartate Amino Transferase 35 U/L (17-59); Bilirubin,Total 0.7 mg/dL (0.2-1.3); Blood Urea Nitrogen 10 mg/dL (9-20); Calcium 8.4 mg/dL (8.4-10.2); Carbon Dioxide 25 mmol/L (22-30); Chloride 106 mmol/L (98-107); Estimated CRCL calculation 169 ml/min; Estimated Glomerular Filt Rate > 60; Glucose 125 mg/dL (65-110); Potassium 3.5 mmol/L (3.4-5.0); Sodium 138 mmol/L (137-145)
[2024-03-28 08:20] LABS: Glucose Point of Care 144 mg/dl (65-105)
[2024-03-28] MEDS: ENOXAPARIN 40 MG/0.4 ML SYRINGE SUB-Q (09:07)
[2024-03-28] MEDS: ROSUVASTATIN 5 MG TABLET PO (09:07)
[2024-03-28] MEDS: LINEZOLID 600 MG TABLET PO ×2 (09:07→21:10)
[2024-03-28 12:05] LABS: Glucose Point of Care 133 mg/dl (65-105)
[2024-03-28 13:53] VITALS: BP 132/90; PULSE 74; RESP 18; TEMP 36.7; O2SAT 100
[2024-03-28 16:34] LABS: Uric Acid 3.6 mg/dL (3.5-8.5)
[2024-03-28 16:51] LABS: Glucose Point of Care 122 mg/dl (65-105)
--- NOTE | 2024-03-28 18:21 | P.PNIM_ITS ---
Progress Note: A&P Assessment and Plan (1) Sepsis: Code(s): A41.9 - Sepsis, unspecified organism Status: Acute Assessment and Plan: * Patient initially meeting sepsis criteria with heart rate of 140, respiratory rate of 22, white blood cell count of 17.3, lactic acidosis 2.8 , known source of infection left lower extremity cellulitis. * vancomycin discontinued and Ancef in linezolid or ordered for better c overage considering his white blood cell count today is 18.7 and he is still febrile. His antibiotic coverage was discussed with Infectious Disease pharmacist * patient was given 3 L of normal saline while in the ED, blood cultures were obtained, antibiotics were started with improvement his heart rate and respiratory rate. * He is febrile, low-grade 99.7 * lactic acid 2.8>1.7 * band neutrophils initially are 12 * 03/28/24: patient transition to Augmentin and linezolid oral for his cellulitis * white blood cell count down to 7.4, he has been afebrile since 03/25/2024 (2) Bandemia: Code(s): D72.825 - Bandemia Status: Acute Assessment and Plan: resolved 03/28/24 (3) Cellulitis of left leg: Code(s): L03.116 - Cellulitis of left lower limb Status: Acute Assessment and Plan: patient reports this is the 3rd time he has had cellulitis to his left lower leg without a source of entry. Patient is diabetic however has been well controlled with his blood sugars and his hemoglobin A1c is 6.0 likely not Charcot neuroarthropathy however considered. his TSH level giving suspicion for pretibial myxedema however T3 and T4 came back normal. Will check for autoimmune disorder as well to rule out any other cause. * left lower extremity is still swollen however erythema and warmth has dimi nished to just around the ankle * venous Doppler study was negative for DVT * will get arterial Doppler study * will check uric acid level * TSH was low however T3 and T4 were within range * will go ahead and repeat TSH today * antibiotics changed to Augmentin and linezolid oral as discussed with Infectious Disease pharmacist * DENIA still pending (4) Hypokalemia: Code(s): E87.6 - Hypokalemia Status: Acute Assessment and Plan: * potassium 3.5 * no replacement needed at this time * continue to trend (5) Hypomagnesemia: Code(s): E83.42 - Hypomagnesemia Status: Acute Assessment and Plan: * magnesium 2.0 * resolved (6) Type 2 diabetes mellitus: Code(s): E11.9 - Type 2 diabetes mellitus without complications Status: Chronic Assessment and Plan: * Blood sugars ranging 122-144 * Hgb A1C 6.2 on 12/25 * repeat hemoglobin A1c 6.0 * Accu checks AC/HS * high-dose SSI ordered * hypoglycemic protocol in place * Diabetic diet ordered * will hold metformin, Farxiga, Januvia (7) Hyperlipidemia: Qualifiers: Hyperlipidemia type: other hyperlipidemia Qualified Code(s): E78.49 - Other hyperlipidemia Code(s): E78.5 - Hyperlipidemia, unspecified Status: Chronic Assessment and Plan: * continue rosuvastatin (8) Hypertension: Qualifiers: Hypertension type: primary hypertension Qualified Code(s): I10 - Essential (primary) hypertension Code(s): I10 - Essential (primary) hypertension Status: Chronic Assessment and Plan: * blood pressure ranging 130/84 to 136/94 * continue amlodipine/valsartan (9) Hx of gastroesophageal reflux (GERD): Code(s): Z87.19 - Personal history of other diseases of the digestive system Status: Chronic Assessment and Plan: * Prilosec on hold * started on Protonix (10) Hyperthyroidism: Code(s): E05.90 - Thyrotoxicosis, unspecified without thyrotoxic crisis or storm Status: Acute Assessment and Plan: * no history of thyroid disorder * TSH today 0.374 * free T3 and free T4 were normal * will recheck TSH today Time Spent With Patient Time with patient: 25 - 35 minutes Subjective Date/time seen: 03/28/24 18:21 Interval history: Interval history: This is a 49-year-old male with a significant past medical history of hypertension, diabetes who presents to the hospital for evaluation of left lower extremity swelling, pain, redness. Patient initially meeting sepsis criteria with heart rate of 140, respiratory rate of 22, white blood cell count of 17.3, lactic acidosis 2.8, known source of infection left lower extremity cellulitis. patient states that his symptoms started this morning when he woke up He noticed that his left lower extremity was red warm and swollen. He states that he has had 5 other incidences where he is been treated for cellulitis in his left leg. Patient denies any recent illness or been around any sick contacts. He states that he does have family members that have had infections in her leg before unsure if this is related. He denies any cuts or insect bites to his lower extremity. His skin does appear to be intact. 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 He denies any history of DVT or PE in the past. Workup in the hospital included a venous Doppler study the left lower extremity which was negative for DVT. Chest x-ray show mild streaky atelectasis/scarring. Initial labs showed a white blood cell count of 17.3, band neutrophils 12, potassium 3.2, blood sugar 128-133, lactic acid 2.8, troponin negative. TSH was low at 0.374. He states that he does not have any history of thyroid disease and note thyroid disease in his family. UA was obtained and showed 3+ urine glucose otherwise negative. Blood cultures were obtained and are pending. EKG showing sinus tachycardia with left axis deviation, incomplete right bundle branch block with a rate of 106, QTC 454. Patient was given 3 L of normal saline, Tylenol, and vancomycin while in the ED. Subjective: patient denies any new complaints today. Labs reviewed. Review of Systems Review of Systems: All systems reviewed & are unremarkable except as noted in HPI and below Constitutional: Constitutional: Reports as per HPI and Reports no additional constitutional complaints Eyes: Eyes: Reports as per HPI and Reports no additional eye complaints ENT: Reports system reviewed and no additional complaints, except as documented and Reports as per HPI Cardiovascular: Cardiovascular: Reports as per HPI and Reports no additional cardiovascular complaints Respiratory: Respiratory: Reports as per HPI and Reports no additional respiratory complaints Gastrointestinal: Gastrointestinal: Reports as per HPI and Reports no additional gastrointestinal complaints Genitourinary: Genitourinary: Reports no additional male genitourinary complaints and Reports as per HPI Musculoskeletal: Musculoskeletal: Reports no additional musculoskeletal complaints and Reports as per HPI Integumentary/Breasts: Skin/Breast: Reports system reviewed and no additional complaints, except as docu and Reports as per HPI Neurologic: Reports system reviewed and no additional complaints, except as documented and Reports as per HPI Psychiatric: Psychiatric: Reports no additional psychiatric complaints and Reports as per HPI Exam Narrative: General: In no acute distress, well nourished Cardiac: Normal S1 and S2. No murmur, gallops or friction rubs, peripheral pulses intact. Respiratory: Lungs clear to auscultation, no adventitious lung sounds, currently on room air Gastrointestinal: soft, non-distended, non-tender, normoactive bowel sounds. Skin: left lower extremity is still swollen however redness has diminished to just around the ankle Neuro: Alert and oriented x4 Objective Data Vital Signs Vital Signs: Vital Signs - 24 hr 03/27/24 20:58 03/28/24 06:00 03/28/24 13:53 Temperature 98.2 F 98.2 F 98.1 F Pulse Rate 84 70 74 Respiratory Rate 18 18 18 Blood Pressure 134/90 135/91 H 132/90 Pulse Oximetry 98 99 100 Oxygen Delivery 03/28/24 09:10 Temperature Pulse Rate Respiratory Rate Blood Pressure Pulse Oximetry Oxygen Delivery Room Air Intake/Output Intake/Output: Intake & Output 03/25/24 03/26/24 03/27/24 03/28/24 23:59 23:59 23:59 23:59 Intake Total 4810 1710 1660 1800 Output Total 1000 450 600 Balance 3810 1260 1060 1800 Meds/Results Medications: Active Medications Generic Name Dose Route Start Last Admin Trade Name Freq PRN Reason Stop Dose Admin Acetaminophen 650 mg 03/24/24 14:21 03/26/24 16:36 Acetaminophen 325 Mg Tablet PO 650 mg Q4H PRN Administration Mild Pain (1-3) or Fever Amoxicillin/Clavulanate Potassium 1 tablet 03/28/24 22:00 Amoxicillin/Clavulanate K 875-125 Mg Tab PO 04/03/24 23:59 Q12HR RICHARD Dextrose 12.5 gm 03/24/24 14:21 Dextrose 50% 25 Gm/50 Ml Syringe IV PUSH PRN PRN Hypoglycemia Protocol Enoxaparin Sodium 40 mg 03/25/24 09:00 03/28/24 09:07 Enoxaparin 40 Mg/0.4 Ml Syringe SUB-Q 40 mg DAILY RICHARD Administration Glucagon 1 mg 03/24/24 14:21 Glucagon For Inj 1 Mg Vial IM PRN PRN Hypoglycemia Protocol Glucose 15 gm 03/24/24 14:21 Glucose Oral Gel 15 Gm Of Glucse In 37.5 Gm Tube PO PRN PRN Hypoglycemia Protocol Dextrose 1,000 mls @ 100 mls/hr 03/24/24 14:21 Dextrose 5% 1,000 Ml IVPB PRN PRN Hypoglycemia Protocol Insulin Aspart 4 - 8 units 03/24/24 17:00 03/28/24 18:01 Insulin Aspart (*Bkc) 100 Units/Ml SUB-Q Not Given TIDWM RICHARD Protocol Insulin Aspart 2 - 4 units 03/24/24 21:00 03/27/24 20:59 Insulin Aspart (*Bkc) 100 Units/Ml SUB-Q Not Given HS RICHARD Protocol Linezolid 600 mg 03/25/24 21:00 03/28/24 09:07 Linezolid 600 Mg Tablet PO 04/03/24 23:59 600 mg Q12HR RICHARD Administration Ondansetron HCl 4 mg 03/24/24 14:21 Ondansetron Inj 4 Mg/2 Ml Vial IV PUSH Q6H PRN Nausea And Vomiting Rosuvastatin Calcium 5 mg 03/26/24 11:40 03/28/24 09:07 Rosuvastatin 5 Mg Tablet PO 5 mg DAILY RICHARD Administration Radiology Results: ITS Impressions Venous Doppler Study 03/24/24 10:49 IMPRESSION: 1. No deep venous thrombosis in the left lower limb. Chest X-Ray 03/24/24 11:31 IMPRESSION: 1. Mild streaky atelectasis/scarring at the left costophrenic angle. No other acute cardiopulmonary disease. Thyroid Ultrasound 03/24/24 20:48 IMPRESSION: 1. Normal thyroid. Labs Labs: Laboratory Results - last 24 hr 03/24/24 03/27/24 03/28/24 20:19 20:04 05:25 WBC RBC Hgb Hct MCV MCH MCHC RDW Plt Count MPV Immature Gran % (Auto) Neut % (Auto) Lymph % (Auto) [place] % (Auto) Eos % (Auto) Baso % (Auto) Lymph # (Auto) [place] # (Auto) Eos # (Auto) Baso # (Auto) Abs Immat Gran (auto) Absolute Neuts (auto) Absolute Nucleated RBC Nucleated RBC % Sodium Potassium Chloride Carbon Dioxide Anion Gap BUN Creatinine Estim Creat Clear Calc Estimated GFR Glucose POC Capillary Glucose 175 H Uric Acid 3.6 Calcium Magnesium Total Bilirubin AST ALT Alkaline Phosphatase Total Protein Albumin TSH 2.010 DENIA Screen Negative 03/28/24 03/28/24 03/28/24 05:27 07:51 11:49 WBC 7.4 RBC 4.88 Hgb 13.4 L Hct 41.4 L MCV 84.8 MCH 27.5 MCHC 32.4 RDW 13.9 Plt Count 243 MPV 9.9 Immature Gran % (Auto) 0.9 H Neut % (Auto) 70.4 Lymph % (Auto) 19.8 [place] % (Auto) 7.7 Eos % (Auto) 0.7 Baso % (Auto) 0.5 Lymph # (Auto) 1.47 [place] # (Auto) 0.6 Eos # (Auto) 0.1 Baso # (Auto) 0.0 Abs Immat Gran (auto) 0.07 H Absolute Neuts (auto) 5.2 Absolute Nucleated RBC 0.000 Nucleated RBC % 0.0 Sodium 138 Potassium 3.5 Chloride 106 Carbon Dioxide 25 Anion Gap 7 BUN 10 Creatinine 0.60 L Estim Creat Clear Calc 169 Estimated GFR > 60 Glucose 125 H POC Capillary Glucose 144 H 133 H Uric Acid Calcium 8.4 Magnesium 2.0 Total Bilirubin 0.7 AST 35 ALT 56 H Alkaline Phosphatase 66 Total Protein 7.0 Albumin 3.5 TSH DENIA Screen 03/28/24 16:48 WBC RBC Hgb Hct MCV MCH MCHC RDW Plt Count MPV Immature Gran % (Auto) Neut % (Auto) Lymph % (Auto) [place] % (Auto) Eos % (Auto) Baso % (Auto) Lymph # (Auto) [place] # (Auto) Eos # (Auto) Baso # (Auto) Abs Immat Gran (auto) Absolute Neuts (auto) Absolute Nucleated RBC Nucleated RBC % Sodium Potassium Chloride Carbon Dioxide Anion Gap BUN Creatinine Estim Creat Clear Calc Estimated GFR Glucose POC Capillary Glucose 122 H Uric Acid Calcium Magnesium Total Bilirubin AST ALT Alkaline Phosphatase Total Protein Albumin TSH DENIA Screen Quality VTE Prophylaxis VTE prophylaxis: pharmacologic ordered
[2024-03-28 20:47] LABS: Glucose Point of Care 136 mg/dl (65-105)
[2024-03-28 21:06] VITALS: BP 134/88; PULSE 73; RESP 20; TEMP 36.6; O2SAT 100
[2024-03-28] MEDS: AMOXICILLIN/CLAVULANATE K 875-125 MG TAB 1 TABLET PO (21:10)
[2024-03-28] MEDS: WATER FOR IRRIGATION, STERILE 1,000 ML BOTTLE 1000 ML (21:11)
[2024-03-28 23:00] VITALS: PULSE 73; O2SAT 100
[2024-03-29 05:12] VITALS: O2SAT 100
[2024-03-29 05:57] LABS: Basophils Percent Auto 0.5 % (0.2-1.2); Eosinophils Absolute Auto 0.1 K/mm3 (0-0.3); Eosinophils Percent Auto 0.9 % (0-4.4); Hematocrit 40.4 % (42.0-52.0); Hemoglobin 13.4 g/dL (14.0-18.0); Immature Granulocyte Absolute 0.11 K/mm3 (0.00-0.031); Immature Granulocyte Percent A 1.4 % (0-0.5); Lymphocytes Absolute Auto 1.14 K/mm3 (0.9-3.2); Lymphocytes Percent Auto 14.8 % (18.3-44.2); Mean Corpuscular HGB Conc 33.2 g/dl (32-36); Mean Corpuscular Hemoglobin 28.1 pg (26-34); Mean Corpuscular Volume 84.7 fl (80-100); Mean Platelet Volume 9.4 fl (7.4-10.4); Monocytes Absolute Auto 0.5 K/mm3 (0.1-0.6); Monocytes Percent Auto 5.9 % (2.6-8.5); Neutrophils Absolute Auto 5.9 K/mm3 (1.3-6.7); Neutrophils Percent Auto 76.5 % (45.5-73.1); Platelet Count Result 234 k/mm3 (150-375); Red Blood Count 4.77 M/mm3 (4.6-6.20); Red Cell Distribution Width 13.7 % (11.5-14.5); White Blood Count 7.7 K/mm3 (4.5-10.0)
[2024-03-29 06:00] VITALS: BP 127/89; PULSE 68; RESP 20; TEMP 36.3; O2SAT 99
[2024-03-29 06:08] LABS: Alanine Aminotransferase 50 U/L (6-50); Albumin Level 3.5 g/dL (3.5-5.1); Alkaline Phosphatase 67 U/L (38-126); Anion Gap 5 mmol/L (4-12); Aspartate Amino Transferase 31 U/L (17-59); Bilirubin,Total 0.8 mg/dL (0.2-1.3); Blood Urea Nitrogen 9 mg/dL (9-20); Calcium 8.2 mg/dL (8.4-10.2); Carbon Dioxide 27 mmol/L (22-30); Chloride 105 mmol/L (98-107); Estimated CRCL calculation 169 ml/min; Estimated Glomerular Filt Rate > 60; Glucose 128 mg/dL (65-110); Potassium 3.5 mmol/L (3.4-5.0); Sodium 137 mmol/L (137-145)
--- NOTE | 2024-03-29 08:26 | P.DS_ITS ---
DS: Admitting Diagnosis Discharge Date 03/29/24 Admitting Diagnosis Sepsis Bandemia Cellulitis of left leg hypokalemia hypomagnesemia Type 2 DM Hyperlipidemia hypertension hyperthyroidism DS: Discharge Diagnosis Discharge Diagnosis (1) Sepsis: Code(s): A41.9 - Sepsis, unspecified organism Status: Acute (2) Bandemia: Code(s): D72.825 - Bandemia Status: Acute (3) Cellulitis of left leg: Code(s): L03.116 - Cellulitis of left lower limb Status: Acute (4) Hypokalemia: Code(s): E87.6 - Hypokalemia Status: Acute (5) Hypomagnesemia: Code(s): E83.42 - Hypomagnesemia Status: Acute (6) Type 2 diabetes mellitus: Code(s): E11.9 - Type 2 diabetes mellitus without complications Status: Chronic (7) Hyperlipidemia: Qualifiers: Hyperlipidemia type: other hyperlipidemia Qualified Code(s): E78.49 - Other hyperlipidemia Code(s): E78.5 - Hyperlipidemia, unspecified Status: Chronic (8) Hypertension: Qualifiers: Hypertension type: primary hypertension Qualified Code(s): I10 - Essential (primary) hypertension Code(s): I10 - Essential (primary) hypertension Status: Chronic (9) Hx of gastroesophageal reflux (GERD): Code(s): Z87.19 - Personal history of other diseases of the digestive system Status: Chronic (10) Hyperthyroidism: Code(s): E05.90 - Thyrotoxicosis, unspecified without thyrotoxic crisis or storm Status: Acute DS: Summary Hospital Course Reason for hospitalization: Sepsis Bandemia Cellulitis of left leg hypokalemia hypomagnesemia Type 2 DM Hyperlipidemia hypertension hyperthyroidism Hospital Course: This is a 49-year-old male with a significant past medical history of hypertension, diabetes who presents to the hospital for evaluation of left lower extremity swelling, pain, redness. Patient initially meeting sepsis criteria with heart rate of 140, respiratory rate of 22, white blood cell count of 17.3, lactic acidosis 2.8, known source of infection left lower extremity cellulitis. patient states that his symptoms started this morning when he woke up He noticed that his left lower extremity was red warm and swollen. He states that he has had 5 other incidences where he is been treated for cellulitis in his left leg. Patient denies any recent illness or been around any sick contacts. He states that he does have family members that have had infections in her leg before unsure if this is related. He denies any cuts or insect bites to his lower extremity. His skin does appear to be intact. 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 He denies any history of DVT or PE in the past. Workup in the hospital included a venous Doppler study the left lower extremity which was negative for DVT. Chest x-ray show mild streaky atelectasis/scarring. Initial labs showed a white blood cell count of 17.3, band neutrophils 12, potassium 3.2, blood sugar 128-133, lactic acid 2.8, troponin negative. TSH was low at 0.374. He states that he does not have any history of thyroid disease and note thyroid disease in his family. UA was obtained and showed 3+ urine glucose otherwise negative. Blood cultures were obtained and are pending. EKG showing sinus tachycardia with left axis deviation, incomplete right bundle branch block with a rate of 106, QTC 454. Patient was given 3 L of normal saline, Tylenol, and vancomycin while in the ED. You had a venous doppler and arterial doppler done here at the hospital. The venous doppler did not show evidence of DVT. The arterial doppler did not show visible flow in the left dorsalis pedis and will need to be followed up with a Vascular surgeon for further evaluation. This means that the top of the foot is not getting normal blood flow.Hyperthyroidism was ruled out. His first TSH was low however had a normal T3 and T4. Repeat TSH shown WNL Your TSH (thyroid stimulating hormone) was low initially at 0.374 with a normal T3 and normal T4. I repeated this test yesterday and your TSH was 2.010 which does not indicate that you have any thyroid disorder that may have caused your presenting symptoms. Pretibial myxedema was ruled out. We also checked a Uric acid level to assess for Gout, which came back normal. Gout was ruled out. We also checked for Lupus or autoimmune disorder that may have caused your presenting symptoms and your DENIA was negative and mitochondria M2 IgG is still pending however you likely do not have an autoimmune disorder that has been causing your symptoms. He was told to follow up with infectious disease for his cellulitis in his left leg and also with vascular surgery due to his arterial blood flow in his dorsalis pedis. Patient is alert and oriented x3, VSS, he is afebrile, currently on room air. Erythema is notably better in his LLE. He is stable for discharge at this time. Final diagnosis: Sepsis, Bandemia, Cellulitis of left leg, hypokalemia, hypomagnesemia Status at Discharge Cognitive/behavioral status at discharge: Alert and oriented x4 Functional status at discharge: independent ambulation Overall status at discharge: patient is progressing back to baseline Time Spent with Patient Time attestation: Total time spent providing and/or coordinating discharge services: Time spent: Greater than 30 minutes Exam Narrative: General: In no acute distress, well nourished Cardiac: Normal S1 and S2. No murmur, gallops or friction rubs, peripheral pul ses intact. Respiratory: Lungs clear to auscultation, no adventitious lung sounds, currently on room air Gastrointestinal: soft, non-distended, non-tender, normoactive bowel sounds. Skin: swelling, erythema improved Neuro: Alert and oriented x4 DS: Data Data Completed and Pending Completed studies during hospitalization: Duplex scan lower extremity artery Thyroid US Chest x-ray Venous doppler study Pending studies at discharge: Blood cultures Labs on day of discharge: Labs from last 24 hours 03/29/24 03/28/24 03/28/24 05:46 20:21 16:48 WBC 7.7 RBC 4.77 Hgb 13.4 L Hct 40.4 L MCV 84.7 MCH 28.1 MCHC 33.2 RDW 13.7 Plt Count 234 MPV 9.4 Immature Gran % (Auto) 1.4 H Neut % (Auto) 76.5 H Lymph % (Auto) 14.8 L Grimes % (Auto) 5.9 Eos % (Auto) 0.9 Baso % (Auto) 0.5 Lymph # (Auto) 1.14 Grimes # (Auto) 0.5 Eos # (Auto) 0.1 Baso # (Auto) 0.0 Abs Immat Gran (auto) 0.11 H Absolute Neuts (auto) 5.9 Absolute Nucleated RBC 0.000 Nucleated RBC % 0.0 Sodium 137 Potassium 3.5 Chloride 105 Carbon Dioxide 27 Anion Gap 5 BUN 9 Creatinine 0.60 L Estim Creat Clear Calc 169 Estimated GFR > 60 Glucose 128 H POC Capillary Glucose 136 H 122 H Uric Acid Calcium 8.2 L Total Bilirubin 0.8 AST 31 ALT 50 Alkaline Phosphatase 67 Total Protein 7.0 Albumin 3.5 TSH DENIA Screen 03/28/24 03/28/24 03/24/24 11:49 05:25 20:19 WBC RBC Hgb Hct MCV MCH MCHC RDW Plt Count MPV Immature Gran % (Auto) Neut % (Auto) Lymph % (Auto) Grimes % (Auto) Eos % (Auto) Baso % (Auto) Lymph # (Auto) Grimes # (Auto) Eos # (Auto) Baso # (Auto) Abs Immat Gran (auto) Absolute Neuts (auto) Absolute Nucleated RBC Nucleated RBC % Sodium Potassium Chloride Carbon Dioxide Anion Gap BUN Creatinine Estim Creat Clear Calc Estimated GFR Glucose POC Capillary Glucose 133 H Uric Acid 3.6 Calcium Total Bilirubin AST ALT Alkaline Phosphatase Total Protein Albumin TSH 2.010 DENIA Screen Negative Preliminary micro results at discharge 03/24/24 12:09 Blood Culture - Preliminary Blood 03/24/24 11:10 Blood Culture - Preliminary Blood Procedures/Treatments: None Discharge Plan Discharge Attending physician on discharge: Joey Griffin Discharging Clinician: Brook Ochoa Anticipated Discharge Date/Time: 03/29/24 08:07 Patient Disposition: Home, Self-Care Activity: as tolerated Diet: as tolerated and diabetic Discharge Instructions: * You had a venous doppler and arterial doppler done here at the hospital. The venous doppler did not show evidence of DVT. The arterial doppler did not show visible flow in the left dorsalis pedis and will need to be followed up with a Vascular surgeon for further evaluation. This means that the top of the foot is not getting normal blood flow. * CALL FOR AN APPOINTMENT: Dr. Srinivas Forrest (Vascular Surgeon) affiliated with [facility] [address] [place] [address] * Your TSH (thyroid stimulating hormone) was low initially at 0.374 with a normal T3 and normal T4. I repeated this test yesterday and your TSH was 2.010 which does not indicate that you have any thyroid disorder that may have caused your presenting symptoms. Pretibial myxedema was ruled out. * We also checked a Uric acid level to assess for Gout, which came back normal. Gout was ruled out. * We also checked for Lupus or autoimmune disorder that may have caused your presenting symptoms and your DENIA was negative and mitochondria M2 IgG is still pending however you likely do not have an autoimmune disorder that has been causing your symptoms. * Considering the workup, it is advised to see an infectious disease doctor considering you have had 5 noted infections to the same leg. You have been undergoing treatment for cellulitis. * Finish all your antibiotic as directed even if you are feeling better. * Follow up with your primary care doctor in 1 week. * CALL FOR AN APPOINTMENT Dr. Eleazar Shrestha (Infectious disease) affiliated with [facility] [address] [place] [address] Patient Instructions: Antibiotic Form, Amoxicillin/Clavulanate Potassium (By mouth), Linezolid (By mouth), Cellulitis (GEN) Patient Language: Slovenian Stand Alone Forms: General Discharge Information Follow-up/Referrals: Parmjit Riggs, DIE TRIPPER [Primary Care Provider] - 1 Week Discharge Medications: New linezolid 600 mg tablet 600 mg PO Q12HR Qty: 11 0RF amoxicillin-pot clavulanate 875-125 mg tablet 1 tablet PO Q12H Qty: 11 0RF Continued metformin 500 mg tablet 500 mg PO BID amlodipine-valsartan 10-320 mg tablet See Rx Instructions .ROUTE .COMPLEX Qty: 90 1RF Dose Instruction: TAKE 1 TABLET DAILY Rx Instructions: TAKE 1 TABLET DAILY rosuvastatin 5 mg tablet 5 mg PO DAILY Qty: 90 1RF Januvia 100 mg tablet 100 mg PO DAILY Qty: 90 1RF hydrochlorothiazide 12.5 mg tablet See Rx Instructions .ROUTE .COMPLEX Qty: 90 1RF Dose Instruction: TAKE 1 TABLET DAILY Rx Instructions: TAKE 1 TABLET DAILY dapagliflozin propanediol [Farxiga] 10 mg tablet 10 mg PO DAILY Qty: 90 1RF Date of admission: 03/26/24 13:47 Primary Care Provider: Parmjit Riggs Admitting Provider: Vinnie Pierce Attending physician on admission: Vinnie Pierce Condition: Improved Quality VTE Prophylaxis VTE prophylaxis: pharmacologic ordered Hospitalist MIPS Heart Failure (Exclusion) Patient has history of Heart Transplant or Left Ventricular Assistive Device?: No IF YES, STOP HERE Heart Failure (Qualifier) Patient has current or prior documentation of LVEF less than or equal to 40%, or mod/servere depressed LVSF?: No IF NO, STOP HERE
[2024-03-29 08:46] LABS: Glucose Point of Care 132 mg/dl (65-105)
[2024-03-29] MEDS: AMOXICILLIN/CLAVULANATE K 875-125 MG TAB 1 TABLET PO (09:01)
[2024-03-29] MEDS: LINEZOLID 600 MG TABLET PO (09:01)
[2024-03-29] MEDS: ROSUVASTATIN 5 MG TABLET PO (09:01)
[2024-04-05 04:03] LABS: Mitochondrial (M2) Ab (IgG) <20.0 U
== END 2024-03-29 12:00 | disposition home or self-care (01) | DRG 872 ==
LOC: ANHED 13:32 → ANH3MED 14:07
PROVIDERS: Admitting Provider Family Medicine; Emergency Provider Registered Nurse; PCP Nurse Practitioner; Visit Provider Nurse Practitioner Acute Care
DX: A41.9 Sepsis, unspecified organism (principal); L03.116 Cellulitis of left lower limb; I10 Essential (primary) hypertension; E87.6 Hypokalemia; E83.42 Hypomagnesemia; E11.9 Type 2 diabetes mellitus without complications; E05.90 Thyrotoxicosis, unspecified without thyrotoxic crisis or storm; E78.5 Hyperlipidemia, unspecified; K21.9 Gastro-esophageal reflux disease without esophagitis; G47.33 Obstructive sleep apnea (adult) (pediatric); H35.30 Unspecified macular degeneration
CPT/HCPCS: 36415; 71046; 76536; 80048; 80053; 80074; 81003; 82948; 83036; 83520; 83605; 83735; 84439; 84443; 84480; 84484; 84550; 85025; 85610; 85652; 85730; 86038; 86039; 86140; 87040; 93005; 93925; 93971; 96361; 96365; 96366; 96374; 96375; 96376; 99285; A9270; G0378; J0690; J1650; J3370; J3475; J3480; J7030; J7040

== ENCOUNTER 2024-07-08 00:50 | Day surgery (SDC) | payer BC, SELFPAY ==
[2024-06-27 14:02] VITALS: BMI 34.9
--- OUTSIDE RECORDS SUMMARY | 2024-07-08 00:53 | XMS_ITS | Referral Summary ---
Author Organization [address] Address [address] [place] [address] Care Team Providers Care Food Analyst Name Role Phone Thong Garner DO Primary Care Provider [phone] Encounters Date Type Department Care Team Description 06/01/2024 Telephone [facility] Surgery [address] [facility] [address] [place] [address] Sy Hanley MD 05/31/2024 Telephone [facility] Surgery [address] [facility] [address] [place] [address] Sy Hanley MD 05/27/2024 Orders Only 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 Infectious Diseases [address] [place] [address] [address] [place] [address] Brionna Ramirez NP Tinea pedis of left foot (Primary Dx); Cellulitis, unspecified cellulitis site; Recurrent cellulitis of lower extremity from Last 3 Months Allergies No known active allergies Medications amlodipine-valsart an (EXFORGE) 10-320 mg per tablet 02/01/2021 Active Farxiga 10 mg tablet 02/06/2021 Active hydroCHLOROthiazid e (HYDRODIURIL) 12.5 mg tablet 02/05/2021 Acti ve metFORMIN (GLUCOPHAGE) 500 mg tablet 02/22/2021 Active rosuvastatin (CRESTOR) 5 mg tablet 02/05/2021 Active Januvia 100 mg tablet 02/05/2021 Active Active Problems Problem Noted Date Diagnosed Date Type 2 diabetes mellitus, wi maria teresa long-term current use of insulin 05/27/2024 HTN (hypertension) 05/27/2024 Recurrent cellulitis of lower extremity 05/27/19 25 Assessment & Plan (05/27/2024 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 Admitted to OSH 03/2024 with acute cellulitis meeting sepsis criteria. No evidence of cellulitis on exam today - Discussed with patient the pathophysiology of cellulitis including risk factors (edema, diabetes, tinea pedis, vascular issues, etc). We discussed the importance of maintaining skin integrity and managing edema to help decrease risk of recurrent infection. - No indication to start antibiotics today. Will give him a course of antibiotics (amoxicillin 500 mg PO TID) to start taking when his symptoms of recurrent cellulitis begin in hopes to decrease severity of infection and avoid hospitalization. He should call ID clinic if he has to take antibiotics - If he starts having frequent episodes of cellulitis in the future will need to discuss a short course of prophylactic antibiotics (3-6 months) but I do not feel he is a candidate for this given episodes are not very frequent. - Continue compression stocking, recommend compression stocking go to at least his knee. He should also elevated leg above his waist for at least 15-20 minutes 3x/day. 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 - Will rx clotrimazole cream for tinea pedis to use BID x 7 days then to use prn. Discussed he should also make sure area between toes is clean and dry to prevent fungal infection - Vascular studies reviewed. Normal venous study but he does have a positive arterial study showing no flow to left dorsalis pedis, though he has normal palpable pulses on exam today. Will send referral to vascular surgery for further evaluation. 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
--- OUTSIDE RECORDS SUMMARY | 2024-07-08 00:53 | XMS_ITS | Encounter Summary ---
Author Organization [facility] Address [address] [place] [address] Phone Care Team Providers Care Wine Master Name Role Phone Thong Garner DO Primary Care Provider [phone] Encounter Details Date Type Department Care Team (Late st Contact Info) Description 03/26/2024 Orders Only [facility] Scanning, Provider Social History Tobacco Use Types Packs/Day Years Used Date Smoking Tobacco: Never Smokeless Tobacco: Never Sex and Gender Information Value Date Recorded Sex Assigned at Not on file 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 Gender Identity Not on file Sexual Orientation Not on file documented as of this encounter Plan of Treatment Not on file documented as of this encounter Procedures Procedure Name Priority Date/Time Associated Diagnosis Comments SCAN - RADIOLOGY/IMAGING 03/26/2024 documented in this encounter Results * SCAN - RADIOLOGY/IMAGING (03/26/2024) Anatomical Region Laterality Modality Other us Provider Scanning Final Result documented in this encounter Visit Diagnoses Not on filedocumented in this encounter Care Teams Wine Master Relationship Specialty Start Date End Date Thong Garner DO PCP - General Internal Medicine 04/21/21 documented as of this encounter
--- OUTSIDE RECORDS SUMMARY | 2024-07-08 00:53 | XMS_ITS | Encounter Summary ---
Author Organization [facility] Address [address] [place] [address] Phone Care Team Providers Care Brace Maker Name Role Phone Thong Garner DO Primary Care Provider [phone] Encounter Details Date Type Department Care Team (Late st Contact Info) Description 10/02/2023 Orders Only [facility] Scanning, Provider Social History Tobacco Use Types Packs/Day Years Used Date Smoking Tobacco: Never Smokeless Tobacco: Never Sex and Gender Information Value Date Recorded Sex Assigned at Not on file 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
--- OUTSIDE RECORDS SUMMARY | 2024-07-08 00:53 | XMS_ITS | Clinical Summary ---
Author Organization [facility] Address [address] 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 Gender Identity Not on file Sexual Orientation Not on file Last Filed Vital Signs Vital Sign Reading Time Taken Comments Blood Pressure 132/76 04/14/2016 8:44 AM ROUGH AND TRUEING MACHINE OPERATOR Pulse - - Temperature - - Respiratory Rate - - Oxygen Saturation - - Inhaled Oxygen Concentration - - Weight - - Height - - Body Mass Index - - Plan of Treatment Health Maintenance Due Date Last Done Comments DTAP/TDAP/TD VACCINES (1 - Tdap) 01/23/1992 HEPATITIS B VACCINES (1 of 3 - 19+ 3-dose series) 01/23/1992 FIT-DNA Q 3 years 2018 FIT/FOBT Q 1 year 2018 Flex Sig/CT Colonography Q 5 years 2018 ZOSTER VACCINE (1 of 2) 2023 INFLUENZA VACCINE (#1) 2023 COLORECTAL SCREENING 03/15/2029 03/15/2019, 03/15/20 19 Colorectal Cancer Screening 03/15/2029 Care Teams Clothes Ironer Relationship Specialty Start Date End Date Thong Garner DO [address] [facility] [facility] [address] [place] [address] PCP - General Internal Medicine 09/28/19
--- OUTSIDE RECORDS SUMMARY | 2024-07-08 00:53 | XMS_ITS | Encounter Summary ---
Author Organization [facility] Address [address] [place] [address] Phone Care Team Providers Care Chemical Maker Name Role Phone Thong Garner DO Primary Care Provider [phone] Encounter Details Date Type Department Care Team (Late st Contact Info) Description 03/24/2024 Orders Only [facility] Scanning, Provider Social History Tobacco Use Types Packs/Day Years Used Date Smoking Tobacco: Never Smokeless Tobacco: Never Sex and Gender Information Value Date Recorded Sex Assigned at Not on file 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
--- OUTSIDE RECORDS SUMMARY | 2024-07-08 00:53 | XMS_ITS | Clinical Summary ---
Author Organization [facility] [place] [address] Address [address] [place] [id number] Care Team Providers Care Mattress Filling Machine Tender Name Role Phone Thong Garner DO Primary Care Provider [phone] Allergies No known active allergies Medications amlodipine-valsart an (EXFORGE) 10-320 mg per tablet 02/01/2021 Active Farxiga 10 mg tablet 02/06/2021 Active hydroCHLOROthiazid e (HYDRODIURIL) 12.5 mg tablet 02/05/2021 Acti ve metFORMIN (GLUCOPHAGE) 500 mg tablet 02/22/2021 Active rosuvastatin (CRESTOR) 5 mg tablet 02/05/2021 Active Januvia 100 mg tablet 02/05/2021 Active Active Problems Problem Noted Date Diagnosed Date Type 2 diabetes mellitus, wi thout long-term current use of insulin 05/27/2024 HTN (hypertension) 05/27/2024 Recurrent cellulitis of lower extremity 05/27/19 25 Assessment & Plan (05/27/2024 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 Tinea pedis of left foot 05/27/2024 Encounters Date Type Department Care Team Description 06/01/2024 Telephone [facility] [address] [facility] Floor 1 [place] [address] Sy Hanley MD 05/31/2024 Telephone [facility] [address] [facility] Floor 1 [place] [address] Sy Hanley MD 05/27/2024 Orders Only [facility] [address] [facility] 2nd Floor [address] [place] [address] Sy Hanley MD Atherosclerosis of [place] arteries of extremities with intermittent claudication, bilateral legs (Primary Dx) 05/26/2024 9:00 AM DIRECTOR PRISON Office Visit [facility] [address] [facility] [address] [place] [address] Brionna Ramirez NP Tinea pedis of left foot (Primary Dx); Cellulitis, unspecified cellulitis site; Recurrent cellulitis of lower extremity from Last 3 Months Social History Tobacco Use Types Packs/Day Years Used Date Smoking Tobacco: Never Smokeless Tobacco: Never Sex and Gender Information Value Date Recorded Sex Assigned at Not on file Legal Sex Male 1:47 PM DIRECTOR 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 Gender Identity Not on file Sexual Orientation Not on file Obstetrics History Last Filed Vital Signs Vital Sign Reading Time Taken Comments Blood Pressure 134/83 05/26/2024 9:10 AM DIRECTOR PRISON Pulse 92 05/26/2024 9:10 AM DIRECTOR PRISON Temperature 37.2 C (98.9 F) 05/26/2024 9:10 AM DIRECTOR PRISON Respiratory Rate - - Oxygen Saturation 98% 05/26/2024 9:10 AM DIRECTOR PRISON Inhaled Oxygen Concentration - - Weight 116.5 kg (256 lb 12.8 oz) 05/26/2024 9:10 AM DIRECTOR PRISON Height 185.4 cm (6' 1 ) 05/26/2024 9:10 AM DIRECTOR PRISON Body Mass Index 33.88 05/26/2024 9:10 AM DIRECTOR PRISON Plan of Treatment Health Maintenance Due Date Last Done Comments Albumin Creatinine Ratio, Urine 1973 Colon Cancer Screening-Colonoscopy 1973 Depression Screening 1973 Hemoglobin A1C 1973 Hepatitis C Screening 1973 Prostate Cancer Screening-PSA 1973 eGFR 1973 Dilated Eye Exam 1973 Foot Exam 1973 Lipid Panel 1973 DTaP/Tdap/Td Vaccine (1 - Tdap) 01/23/1984 Hepatitis B Screening 1991 Regular Well Visit/Exam 18-64 1991 Pneumococcal vaccine <65 (1 of 2 - PCV) 01/23/1992 Zoster Vaccine (1 of 2) 2023 Covid-19 Vaccine (3 - season) 2024, 07/07/2020 Influenza Vaccine (#1) 2024 , 02/12/2018, 02/23/2012 [place] [employer] [place] [employer] [place] Care Teams Mattress Filling Machine Tender Relationship Specialty Start Date End Date Thong Garner DO PCP - General Internal Medicine 04/21/21
[2024-07-08 06:46] LABS: Glucose Point of Care 179 mg/dl (65-105)
[2024-07-08 06:49] VITALS: BP 134/90; PULSE 104; RESP 18; TEMP 36.4; O2SAT 97
[2024-07-08 06:50] VITALS: BMI 33.8
[2024-07-08] MEDS: LACTATED RINGERS 1,000 ML 150 ML IV CONT (07:03)
--- NOTE | 2024-07-08 07:18 | WPDANESEPPF ---
Anes - Initial Pre Proc Eval Procedure: Operation Date: 07/08/24 08:00 Proposed Procedures p Screening Colonoscopy - Enrico Regan MD Date/Time: 07/08/24 07:18 Surgeon: Enrico Regan MD Pre Op Diagnosis: personal hx colon polyps Patient Data Age: 49 Gender: M Height: 1.85 m Weight: 116.4 kg Last Vital Signs Temp 97.5 F L 07/08/24 06:49 Pulse 104 H 07/08/24 06:49 Resp 18 07/08/24 06:49 BP 134/90 07/08/24 06:49 Pulse Ox 97 07/08/24 06:49 O2 Del Method Room Air 07/08/24 06:49 Allergies Allergy/AdvReac Type Severity Reaction Status Date / Time No Known Allergies Allergy Verified 06/27/24 13:48 Home Medications ?Medication ?Instructions ?Recorded ?Confirmed ?Type hydrochlorothiazide 12.5 mg tablet See Rx Instructions .Route 01/11/24 07/08/24 Rx .COMPLEX #90 tabs rosuvastatin 5 mg tablet 5 mg PO DAILY #90 tabs 01/11/24 07/08/24 Rx sitagliptin phosphate 100 mg 100 mg PO DAILY #90 tabs 01/11/24 07/08/24 Rx tablet (Januvia) dapagliflozin propanediol 10 mg 10 mg PO DAILY #90 tabs 01/26/24 07/08/24 Rx tablet (Farxiga) amlodipine 10 mg-valsartan 320 mg See Rx Instructions .Route 04/13/24 07/08/24 Rx tablet .COMPLEX #90 tabs metformin 500 mg tablet 500 mg PO BID #180 tabs 05/06/24 07/08/24 Rx Laboratory Tests 07/08/24 06:44 POC Capillary Glucose 179 H mg/dl (65-105) Patient hx anesthesia problems: none Family hx anesthesia problems: none Results Review: All pre-operative results and documents have been reviewed as part of the pre-operative evaluation. [facility] Past Medical History Medical History BMI 34.0-34.9,adult Macular degeneration Retinal detachment COVID-19 Adhesive capsulitis of right shoulder BMI 36.0-36.9,adult Hemoglobin A1C between 7% and 9% indicating borderline diabetic control 04/06/2020 A1C = 7.2 Diarrhea Bloating symptom ESTEFANIA (obstructive sleep apnea) Hypertension Diabetes Family History Family History Father Family history of diabetes mellitus in first degree relative Diabetes mellitus Sibling Depression Grandparent Family history of malignant neoplasm Mother No problems noted. Social History Social History Smoking status: Never smoker Second hand tobacco smoke exposure: Yes Alcohol intake: current Substance use: never Substance use type: does not use Do You Feel Safe in your Home?: Yes Lack of Transportation: No Lack of Food: Never True Current Housing: I Have Housing Concerned About Future Housing: Decline to Answer Difficulty Paying Gas/Electric Bills: Decline to Answer Difficulty Paying for Meds: Decline to Answer Currently Unemployed: Decline to Answer Education: Master's Degree or Higher Difficulty w/ Childcare or Family Care: No Living arrangements: with family Occupation/Education: occupation 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 HTN, hyperlipidemia, ESTEFANIA on CPAP, DM 189. Pt states that he can walk 1-2 fos, no cp or sob. Informed Consent: The patient's anesthetic plan and its attendant risks and benefits were discussed with the patient/family/POA. Questions were solicited and answers provided to the satisfaction of the patient/family/POA.
--- NOTE | 2024-07-08 07:40 | PM.HPGS ---
History of Present Illness History of Present Illness Consent: Risks, benefits, and alternatives have been discussed and questions answered. Patient agrees to proceed with procedure. Chief complaint: personal hx colon polyps Narrative: Santino Metzger is a 49 year old male with colon polyp in 2019 Review of Systems Review of Systems: All systems reviewed & are unremarkable except as noted in HPI and below PMFSH Past Medical History Medical History (Updated 07/08/24 @ 07:40 by Enrico Regan MD) Colon polyp BMI 34.0-34.9,adult Macular degeneration Retinal detachment COVID-19 Adhesive capsulitis of right shoulder BMI 36.0-36.9,adult Hemoglobin A1C between 7% and 9% indicating borderline diabetic control 04/06/2020 A1C = 7.2 Diarrhea Bloating symptom ESTEFANIA (obstructive sleep apnea) Hypertension Diabetes Family History Family History Father Family history of diabetes mellitus in first degree relative Diabetes mellitus Sibling Depression Grandparent Family history of malignant neoplasm Mother No problems noted. Social History Social History Smoking status: Never smoker Second hand tobacco smoke exposure: Yes Alcohol intake: current Substance use: never Substance use type: does not use Do You Feel Safe in your Home?: Yes Lack of Transportation: No Lack of Food: Never True Current Housing: I Have Housing Concerned About Future Housing: Decline to Answer Difficulty Paying Gas/Electric Bills: Decline to Answer Difficulty Paying for Meds: Decline to Answer Currently Unemployed: Decline to Answer Education: Master's Degree or Higher Difficulty w/ Childcare or Family Care: No Living arrangements: with family Occupation/Education: occupation 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 Gender identity (if verbalized by the patient): Male Spiritual care concerns: No Meds Home Medications and Allergies Home Medications ?Medication ?Instructions ?Recorded ?Confirmed ?Type hydrochlorothiazide 12.5 mg tablet See Rx Instructions .Route 01/11/24 07/08/24 Rx .COMPLEX #90 tabs rosuvastatin 5 mg tablet 5 mg PO DAILY #90 tabs 01/11/24 07/08/24 Rx sitagliptin phosphate 100 mg 100 mg PO DAILY #90 tabs 01/11/24 07/08/24 Rx tablet (Januvia) dapagliflozin propanediol 10 mg 10 mg PO DAILY #90 tabs 01/26/24 07/08/24 Rx tablet (Farxiga) amlodipine 10 mg-valsartan 320 mg See Rx Instructions .Route 04/13/24 07/08/24 Rx tablet .COMPLEX #90 tabs metformin 500 mg tablet 500 mg PO BID #180 tabs 05/06/24 07/08/24 Rx Allergies Allergy/AdvReac Type Severity Reaction Status Date / Time No Known Allergies Allergy Verified 06/27/24 13:48 Vital Signs Vital Signs - 24 hr 07/08/24 06:49 Temperature 97.5 F L Pulse Rate 104 H Respiratory Rate 18 Blood Pressure 134/90 Pulse Oximetry 97 Oxygen Delivery Room Air Exam Const: General: comfortable and no acute distress HENMT: Face/Nose/Sinus: Normal nares present Eyes: General: appearance normal, both eyes and all related structures Neck: Neck: no JVD Resp: Auscultation: clear to auscultation bilaterally Cardio: Rate: regular rate Rhythm: regular rhythm GI: Inspection: non-distended GI Palp: Yes Soft to palpation Skin: General skin exam: normal color Neuro: General: gait normal Speech: normal speech Extrem: General: normal to inspection Psych: Mental Status: mental status grossly normal Assessment and Plan Assessment and plan (1) Colon polyp: Code(s): K63.5 - Polyp of colon Status: Acute Assessment and Plan: colonoscopy
[2024-07-08 07:56] VITALS: BP 109/76; PULSE 86; RESP 18; O2SAT 99
[2024-07-08 08:06] VITALS: BP 107/77; PULSE 88; RESP 22; O2SAT 99
[2024-07-08 08:16] VITALS: BP 113/79; PULSE 81; RESP 18; O2SAT 99
== END 2024-07-08 08:26 | disposition home or self-care (01) ==
PROVIDERS: PCP Nurse Practitioner; Referring Provider Internal Medicine Gastroenterology; Visit Provider Internal Medicine Gastroenterology
PROC: 0DJD8ZZ Inspection of Lower Intestinal Tract, Via Natural or Artificial Opening Endoscopic (ICD-10-PCS; CPT 45378; principal; 2024-07-08 08:00)
DX: Z12.11 Encounter for screening for malignant neoplasm of colon (principal); K57.30 Diverticulosis of large intestine without perforation or abscess without bleeding; K64.8 Other hemorrhoids; Z86.0100 Personal history of colon polyps, unspecified; E11.9 Type 2 diabetes mellitus without complications; E66.9 Obesity, unspecified; Z68.33 Body mass index [BMI] 33.0-33.9, adult
CPT/HCPCS: 45378; 82948; J2704; J7120